=== PATIENT | female | born 1960 | race American Indian/Alaskan Native ===

== ENCOUNTER 2021-09-02 20:00 | Inpatient (IN) | payer MEDICAID ==
[~2021-09-02] VITALS: Ht 154.9 cm; Wt 88.0 kg
[~2021-09-02 20:00] MED LIST: etomidate 2mg/ml inj. ONE
[2021-09-03] VITALS (7 sets, daily range): BP systolic 105–136; BP diastolic 61–66
--- NOTE | 2021-09-03 | NUR ---
Received report from Estrella SAM from [facility] ED. Patient was air flighted here. Patient came to floor via gurney. Bed placed in locked and low position and call light within reach.
[2021-09-03] MEDS ORDERED: LEVO100T PO (00:37)
[2021-09-03] MEDS ORDERED: METO-395 PO (00:37)
[2021-09-03] MEDS ORDERED: PHEN100C4 PO (00:37)
[2021-09-03] MEDS ORDERED: LISI5TAB22 PO (00:37)
[2021-09-03] MEDS ORDERED: magnesium hydroxide 30ml (MOM) UD suspension PO PRN (01:35)
[2021-09-03] MEDS ORDERED: HYDROcodone/acetaminophen 5mg/325mg tablet PO PRN (01:35)
[2021-09-03] MEDS ORDERED: HYDROcodone/acetaminophen 10/325mg tab PO PRN (01:35)
[2021-09-03] MEDS ORDERED: diphenhydrAMINE 25mg capsule PO PRN (01:35)
[2021-09-03] MEDS ORDERED: acetaminophen 650mg rectal suppository RC PRN (01:35)
[2021-09-03] MEDS ORDERED: diphenhydrAMINE 50 mg/ml inj IV PRN (01:35)
[2021-09-03] MEDS ORDERED: bisacodyl 10mg suppository rectal RC PRN (01:35)
[2021-09-03] MEDS ORDERED: acetaminophen 325mg tablet PO PRN (01:35)
[2021-09-03] MEDS ORDERED: morphine 2 MG/ML inj. syringe IV PRN (01:35)
[2021-09-03] MEDS ORDERED: mag hydrox/Alum hydrox/simeth 30ml oral suspension PO PRN (01:35)
[2021-09-03] MEDS ORDERED: ALBUTEROL INHALER 1 PUFF/90 MCG INHALER IH PRN (01:40)
[2021-09-03 02:40] LABS: CLARITY,URINE CLEAR (Clear); COLOR,URINE YELLOW (Yellow); GLUCOSE, URINE NEGATIVE (Neg); PROTEIN,URINE 30 mg/dl (Neg); UA COLLECTION TYPE NON-SPECIFIED
[2021-09-03 02:41] LABS: KETONES,URINE 15 mg/dl (Neg); LEUKOCYTE ESTERASE ,URINE NEGATIVE (Neg); NITRITES, URINE POSITIVE (Neg); OCCULT BLOOD,URINE MODERATE (Neg)
[2021-09-03 02:46] LABS: BACTERIA,URINE 3+ /HPF (Neg); COARSE GRANULAR CAST 0-3 /LPF (NEGATIVE); SQUAMOUS EPITHELIAL CELL,UR FEW /LPF (FEW)
[2021-09-03 02:57] LABS: URINE AMPHETAMINE SCREEN NEGATIVE (Neg); URINE BARBITUATE SCREEN NEGATIVE (Neg); URINE BENZODIAZEPINES SCREEN NEGATIVE (Neg); URINE CANNABINOID SCREEN NEGATIVE (Neg); URINE COCAINE SCREEN NEGATIVE (Neg); URINE METHADONE SCREEN NEGATIVE (Neg); URINE OPIATE SCREEN NEGATIVE (Neg); URINE PHENCYCLIDINE SCREEN NEGATIVE (Neg)
[2021-09-03 03:28] LABS: D-DIMER 1.44 MG/L FEU (0-0.50); PARTIAL THROMBOPLASTIN TIME 29 SECONDS (22-32)
[2021-09-03 03:39] LABS: PHENYTOIN (DILANTIN) 3.7 UG/ML (10.0-20.0); PHOSPHORUS 4.2 MG/DL (2.3-4.5)
[2021-09-03] MEDS: normal saline 1000ml 1,000 ML IV SCH ×2 (03:42→11:35)
[2021-09-03 03:58] LABS: HEMOGLOBIN A1C 5.6 % (4.5-6.2)
--- NOTE | 2021-09-03 06:22 | NUR ---
Problems reprioritized. Patient report given, questions answered & plan of care reviewed with Pamela SAM.
--- NOTE | 2021-09-03 06:41 | NUR ---
Patient in room ORTHO 4014. I have received report from Amparo SAM and had the opportunity to ask questions and assume patient care.
[2021-09-03] MEDS: CefTRIAXone/D5W-Rocephin 1gm 50 ML IV SCH (07:03)
[2021-09-03] MEDS: azithromycin/NS 500mg/250ml 250 ML IV SCH (07:03)
[2021-09-03] MEDS: enoxaparin 60mg/0.6ml syringe SUBCUT SCH ×2 (07:03→19:38)
[2021-09-03] MEDS: pantoprazole 40mg Tablet.DR PO SCH (07:03)
[2021-09-03] MEDS: phenytoin sod ER 100mg capsule PO SCH ×2 (07:04→19:38)
[2021-09-03] MEDS: levoTHYROXINE 100mcg tablet PO SCH (07:04)
[2021-09-03] MEDS: dexamethasone 4mg/ml inj IV SCH ×2 (07:04→19:39)
[2021-09-03] MEDS: docusate sod 100mg capsule PO SCH ×2 (07:05→19:37)
--- NOTE | 2021-09-03 07:59 | NUR ---
PAGER ID: [phone] MESSAGE: [id number], Elan patient came in from [facility] [place] last night, got one dose of remdesivir in their ER. Not ordered for here. Don't know if you want to discuss with ID. Pamela [id number]
[2021-09-03] MEDS ORDERED: enoxaparin 40mg/0.4ml syringe SUBCUT SCH (08:00)
[2021-09-03] MEDS ORDERED: lisinopril 5mg tablet PO SCH (08:00)
[2021-09-03] MEDS ORDERED: metoprolol succinate 25mg (24-HOUR) SR. Tablet PO SCH (08:00)
[2021-09-03 09:18] LABS: D-DIMER 1.49 MG/L FEU (0-0.50)
[2021-09-03 09:31] LABS: ALANINE AMINOTRANSFERASE 105 U/L (12-78); ALBUMIN/GLOBULIN RATIO 0.4 (1.1-1.5); ALKALINE PHOSPHATASE 99 IU/L (46-116); ANION GAP 14 (8-16); ASPARTATE AMINO TRANSFERASE 167 U/L (10-37); BILIRUBIN,TOTAL 0.8 MG/DL (0.1-1.0); BLOOD UREA NITROGEN 49 MG/DL (7-18); BUN/CREATININE RATIO 25.1 (6.6-38.0); CALCIUM 7.3 MG/DL (8.5-10.1); CHLORIDE 104 MMOL/L (99-107); CREATININE 1.95 MG/DL (0.40-0.90); GLUCOSE 158 MG/DL (70-104); LACTATE DEHYDROGENASE 836 U/L (81-234); POTASSIUM 4.2 MMOL/L (3.5-5.1); SODIUM 136 MMOL/L (135-145); TOTAL CARBON DIOXIDE 17.8 MMOL/L (24-32); TOTAL PROTEIN 6.5 G/DL (6.4-8.2); eGFR 26 ML/MIN
[2021-09-03 09:37] LABS: BASOPHILS % (AUTO) 0.1 % (0-1); EOSINOPHILS % (AUTO) 0 % (0-6); LYMPHOCYTES # (AUTO) 0.4 X10'3 (1.1-4.8); LYMPHOCYTES % (AUTO) 2.2 % (21-51); MEAN CORPUSCULAR HEMOGLOBIN 31.2 PG (27.0-31.0); MEAN CORPUSCULAR HGB CONC 35.6 g/dL (33.0-36.5); MEAN CORPUSCULAR VOLUME 87.4 FL (78-98); MEAN PLATELET VOLUME 8.1 FL (7.4-10.4); MONOCYTES # (AUTO) 0.5 X10'3 (0-0.9); NEUTROPHILS # (AUTO) 16.1 X10'3 (1.8-7.7); NEUTROPHILS % (AUTO) 94.7 % (42-75); PLATELET COUNT 240 X10'3 (140-440); RED CELL DISTRIBUTION WIDTH 13.9 % (11.5-14.5)
[2021-09-03] MEDS ORDERED: METO-384 PO (09:38)
[2021-09-03] MEDS ORDERED: LISI20TA28 PO (09:38)
[2021-09-03 10:02] LABS: C-REACTIVE PROTEIN 28.81 MG/DL (0.0-0.5)
--- NOTE | 2021-09-03 10:38 | NUR ---
PAGER ID: [phone] MESSAGE: [id number], C02 on chemistry is 17, bicarb on blood gas was only 11. Do you want her on any bicarb? also CRP is 28, did we talk to ID about starting remdesivir? hermelindo [phone]
[2021-09-03] MEDS: acetaminophen 325mg tablet PO PRN (12:38)
--- NOTE | 2021-09-03 14:18 | NUR ---
Discussed with hospitalist patients c02 level and bicarb of 11 on ABG from [facility]. no changes in orders.
--- NOTE | 2021-09-03 18:18 | NUR ---
Problems reprioritized. Patient report given, questions answered & plan of care reviewed with Amparo SAM.
--- NOTE | 2021-09-03 18:24 | NUR ---
Patient in room ORTHO 4014. I have received report from Pamela SAM and had the opportunity to ask questions and assume patient care.
[2021-09-03] MEDS: REMDESIVIR INJ 100 MG in normal saline 100ml IV soln 80 ML IV SCH (18:43)
[2021-09-03] MEDS: lactobacillus rhamnosus 10,000 MMU CELLS/CAPSULE PO SCH (19:40)
[2021-09-03 20:18] LABS: ABG BASE EXCESS -6.7 mmol/L (-2.0-2.0); ABG HCO3 16.7 mmol/L (22.0-26.0); ABG OXYGEN SATURATION 83.8 % (94-97); ABG PCO2 (T) 27.9 mmHg (32.0-45.0); ABG PO2 (T) 48.9 mmHg (75.0-100.0); ALLEN'S TEST Modified; FCOHb 0.4 % (0.0-3.9); FMetHb 0.1 % (0.0-1.5); FO2Hb 83.4 % (94-97); PATIENT TEMPERATURE 37.2; TOTAL HEMOGLOBIN 13.4 G/dl (12.0-16.0)
--- NOTE | 2021-09-03 20:35 | NUR ---
Called MD with critical ABG results. CPAP ordered and paged RT. Spoke with linen room houseperson about STAT nuclear med test ordered. No nuclear med scans available at night [facility]. states the scan can be done tomorrow during the day.
[2021-09-03] MEDS ORDERED: temazepam 15mg capsule PO PRN (21:00)
[2021-09-03] MEDS: sodium bicarbonate (8.4%) inj. 50 MEQ in dextrose 5%-water 1,000 ML IV SCH (21:37)
[2021-09-04 02:00] VITALS: BP 110/46
--- NOTE | 2021-09-04 06:17 | NUR ---
Problems reprioritized. Patient report given, questions answered & plan of care reviewed with Pamela SAM.
--- NOTE | 2021-09-04 06:22 | NUR ---
Patient in room ORTHO 4014. I have received report from Amparo SAM and had the opportunity to ask questions and assume patient care.
[2021-09-04 06:26] VITALS: BP 121/64
[2021-09-04] MEDS: CefTRIAXone/D5W-Rocephin 1gm 50 ML IV SCH (06:50)
[2021-09-04] MEDS: azithromycin/NS 500mg/250ml 250 ML IV SCH (07:13)
[2021-09-04] MEDS: dexamethasone 4mg/ml inj IV SCH ×2 (07:13→19:21)
[2021-09-04] MEDS: metoprolol succinate 25mg (24-HOUR) SR. Tablet PO SCH (07:39)
[2021-09-04] MEDS: levoTHYROXINE 100mcg tablet PO SCH (07:39)
[2021-09-04] MEDS: enoxaparin 60mg/0.6ml syringe SUBCUT SCH ×2 (07:39→19:20)
[2021-09-04] MEDS: pantoprazole 40mg Tablet.DR PO SCH (07:40)
[2021-09-04] MEDS: phenytoin sod ER 100mg capsule PO SCH ×2 (07:40→19:20)
[2021-09-04] MEDS: lactobacillus rhamnosus 10,000 MMU CELLS/CAPSULE PO SCH ×2 (07:40→19:20)
[2021-09-04] MEDS: docusate sod 100mg capsule PO SCH ×2 (07:40→19:20)
[2021-09-04] MEDS: lisinopril 20mg tablet PO SCH (08:00)
--- NOTE | 2021-09-04 08:09 | NUR ---
PAGER ID: [phone] MESSAGE: [id number], Elan placed on CPAP last night for critical P02 of 48, can I get a repeat blood gas to see what p02 is now to see if we can go back to high flow? patient does not like being on CPAP. thanks, hermelindo [phone]
--- NOTE | 2021-09-04 08:10 | NUR ---
Gave patient AM medications and assisted with eating breakfast while on CPAP, patient tolerated well, lowest 02 got was 84%.
[2021-09-04 08:35] LABS: BASOPHILS % (AUTO) 0.1 % (0-1); EOSINOPHILS % (AUTO) 0 % (0-6); HEMATOCRIT 39.5 % (35.0-45.0); HEMOGLOBIN 14.1 g/dl (12.0-16.0); LYMPHOCYTES # (AUTO) 0.4 X10'3 (1.1-4.8); LYMPHOCYTES % (AUTO) 3.2 % (21-51); MEAN CORPUSCULAR HEMOGLOBIN 31.5 PG (27.0-31.0); MEAN CORPUSCULAR HGB CONC 35.8 g/dL (33.0-36.5); MEAN PLATELET VOLUME 8.1 FL (7.4-10.4); MONOCYTES # (AUTO) 0.3 X10'3 (0-0.9); MONOCYTES % (AUTO) 2.8 % (2-12); NEUTROPHILS # (AUTO) 10.6 X10'3 (1.8-7.7); NEUTROPHILS % (AUTO) 93.9 % (42-75); PLATELET COUNT 271 X10'3 (140-440); RED BLOOD COUNT 4.48 X10'6 (4.20-5.60); RED CELL DISTRIBUTION WIDTH 13.8 % (11.5-14.5); WHITE BLOOD COUNT 11.3 X10'3 (4.5-11.0)
[2021-09-04 08:52] LABS: D-DIMER 1.43 MG/L FEU (0-0.50)
[2021-09-04 08:52] LABS: ABG BASE EXCESS -3.1 mmol/L (-2.0-2.0); ABG HCO3 20.5 mmol/L (22.0-26.0); ABG OXYGEN SATURATION 94.6 % (94-97); ALLEN'S TEST POSITIVE; FCOHb 0.2 % (0.0-3.9); FMetHb 0.4 % (0.0-1.5); TIDAL VOLUME 550 mL; TOTAL HEMOGLOBIN 14.2 G/dl (12.0-16.0)
[2021-09-04 09:16] LABS: ALANINE AMINOTRANSFERASE 67 U/L (12-78); ALBUMIN 1.8 G/DL (3.4-5.0); ALBUMIN/GLOBULIN RATIO 0.4 (1.1-1.5); ALKALINE PHOSPHATASE 93 IU/L (46-116); ANION GAP 11 (8-16); ASPARTATE AMINO TRANSFERASE 70 U/L (10-37); BILIRUBIN,TOTAL 0.5 MG/DL (0.1-1.0); BLOOD UREA NITROGEN 40 MG/DL (7-18); BUN/CREATININE RATIO 26.1 (6.6-38.0); CALCIUM 7.1 MG/DL (8.5-10.1); CHLORIDE 109 MMOL/L (99-107); CHOL/HDL RATIO 4.1 (0.00-4.99); CHOLESTEROL 111 MG/DL (0-200); CREATININE 1.53 MG/DL (0.40-0.90); GLUCOSE 254 MG/DL (70-104); HDL CHOLESTEROL 27 MG/DL (35-60); LDL CHOLESTEROL 59 MG/DL (50-100); POTASSIUM 4.1 MMOL/L (3.5-5.1); SODIUM 142 MMOL/L (135-145); TOTAL CARBON DIOXIDE 21.7 MMOL/L (24-32); TOTAL PROTEIN 5.9 G/DL (6.4-8.2); TRIGLYCERIDES 121 MG/DL (20-135); eGFR 35 ML/MIN
[2021-09-04 09:55] VITALS: BP 146/70
[2021-09-04] MEDS: sodium bicarbonate (8.4%) inj. 50 MEQ in dextrose 5%-water 1,000 ML IV SCH ×2 (11:38→19:34)
[2021-09-04 14:00] VITALS: BP 141/67
[2021-09-04] MEDS: acetaminophen 325mg tablet PO PRN (15:01)
[2021-09-04] MEDS: REMDESIVIR INJ 100 MG in normal saline 100ml IV soln 80 ML IV SCH (17:02)
[2021-09-04 18:00] VITALS: BP 108/49
--- NOTE | 2021-09-04 18:22 | NUR ---
Problems reprioritized. Patient report given, questions answered & plan of care reviewed with [place] SAM.
--- NOTE | 2021-09-04 18:25 | NUR ---
Patient in room ORTHO 4014. I have received report from CECY Santiago and had the opportunity to ask questions and assume patient care.
[2021-09-04 22:00] VITALS: BP 132/72
[2021-09-04] MEDS: guaiFENesin 200 MG/10 ML oral syrup UD cup PO PRN (23:29)
[2021-09-05 02:00] VITALS: BP 128/68
[2021-09-05 06:00] VITALS: BP 129/61
--- NOTE | 2021-09-05 06:39 | NUR ---
Problems reprioritized. Patient report given, questions answered & plan of care reviewed with CECY Mukherjee.
[2021-09-05 07:35] LABS: BASOPHILS % (AUTO) 0.1 % (0-1); EOSINOPHILS % (AUTO) 0.1 % (0-6); HEMATOCRIT 44.9 % (35.0-45.0); HEMOGLOBIN 15.9 g/dl (12.0-16.0); LYMPHOCYTES # (AUTO) 0.5 X10'3 (1.1-4.8); LYMPHOCYTES % (AUTO) 3.9 % (21-51); MEAN CORPUSCULAR HGB CONC 35.4 g/dL (33.0-36.5); MEAN CORPUSCULAR VOLUME 90.4 FL (78-98); MEAN PLATELET VOLUME 8.4 FL (7.4-10.4); MONOCYTES # (AUTO) 0.4 X10'3 (0-0.9); MONOCYTES % (AUTO) 2.7 % (2-12); NEUTROPHILS # (AUTO) 12.3 X10'3 (1.8-7.7); NEUTROPHILS % (AUTO) 93.2 % (42-75); PLATELET COUNT 339 X10'3 (140-440); RED BLOOD COUNT 4.96 X10'6 (4.20-5.60); RED CELL DISTRIBUTION WIDTH 13.7 % (11.5-14.5); WHITE BLOOD COUNT 13.2 X10'3 (4.5-11.0)
[2021-09-05 07:39] LABS: ALANINE AMINOTRANSFERASE 52 U/L (12-78); ALBUMIN 2.1 G/DL (3.4-5.0); ALBUMIN/GLOBULIN RATIO 0.4 (1.1-1.5); ALKALINE PHOSPHATASE 131 IU/L (46-116); ANION GAP 12 (8-16); ASPARTATE AMINO TRANSFERASE 57 U/L (10-37); BILIRUBIN,TOTAL 0.7 MG/DL (0.1-1.0); BLOOD UREA NITROGEN 26 MG/DL (7-18); CALCIUM 7.5 MG/DL (8.5-10.1); CHLORIDE 106 MMOL/L (99-107); CREATININE 1.37 MG/DL (0.40-0.90); GLUCOSE 194 MG/DL (70-104); SODIUM 143 MMOL/L (135-145); TOTAL CARBON DIOXIDE 25.4 MMOL/L (24-32); TOTAL PROTEIN 7.2 G/DL (6.4-8.2); eGFR 39 ML/MIN
[2021-09-05 07:42] LABS: POTASSIUM 3.8 MMOL/L (3.5-5.1)
[2021-09-05] MEDS: enoxaparin 60mg/0.6ml syringe SUBCUT SCH ×2 (07:52→22:33)
[2021-09-05] MEDS: dexamethasone 4mg/ml inj IV SCH ×2 (07:52→22:33)
[2021-09-05] MEDS: CefTRIAXone/D5W-Rocephin 1gm 50 ML IV SCH (07:52)
[2021-09-05] MEDS: lactobacillus rhamnosus 10,000 MMU CELLS/CAPSULE PO SCH ×2 (07:53→20:00)
[2021-09-05] MEDS: metoprolol succinate 25mg (24-HOUR) SR. Tablet PO SCH (07:53)
[2021-09-05] MEDS: phenytoin sod ER 100mg capsule PO SCH ×2 (07:53→22:33)
[2021-09-05] MEDS: pantoprazole 40mg Tablet.DR PO SCH (07:53)
[2021-09-05] MEDS: levoTHYROXINE 100mcg tablet PO SCH (07:53)
[2021-09-05] MEDS: docusate sod 100mg capsule PO SCH ×2 (07:53→20:00)
[2021-09-05] MEDS: lisinopril 20mg tablet PO SCH (07:54)
[2021-09-05] MEDS: ondansetron/PF 4mg/2ml inj IV PRN ×2 (08:09→18:52)
[2021-09-05 09:10] LABS: TOTAL CELLS COUNTED 100
[2021-09-05 09:13] LABS: PLATELET ESTIMATE NORMAL; POIKILOCYTOSIS FEW
[2021-09-05] MEDS: azithromycin/NS 500mg/250ml 250 ML IV SCH (09:53)
[2021-09-05 10:00] VITALS: BP 141/73
[2021-09-05] MEDS: sodium bicarbonate (8.4%) inj. 50 MEQ in dextrose 5%-water 1,000 ML IV SCH (12:38)
[2021-09-05 14:00] VITALS: BP 109/57
[2021-09-05] MEDS: normal saline 1000ml 1,000 ML IV SCH (14:37)
[2021-09-05] MEDS: REMDESIVIR INJ 100 MG in normal saline 100ml IV soln 80 ML IV SCH (16:39)
--- NOTE | 2021-09-05 18:20 | NUR ---
Problems reprioritized. Patient report given, questions answered & plan of care reviewed with CECY Arteaga.
[2021-09-05 18:30] VITALS: BP 90/54
[2021-09-05 22:00] VITALS: BP 128/53
[2021-09-05] MEDS: guaiFENesin 200 MG/10 ML oral syrup UD cup PO PRN (22:33)
[2021-09-06 02:00] VITALS: BP 149/49
[2021-09-06] MEDS: normal saline 1000ml 1,000 ML IV SCH ×3 (03:50→23:53)
[2021-09-06 06:00] VITALS: BP 128/58
--- NOTE | 2021-09-06 06:26 | NUR ---
Patient in room ORTHO 4014B. I have received report from CECY NELSON and had the opportunity to ask questions and assume patient care.
[2021-09-06 07:32] LABS: ALANINE AMINOTRANSFERASE 38 U/L (12-78); ALBUMIN 1.4 G/DL (3.4-5.0); ALBUMIN/GLOBULIN RATIO 0.3 (1.1-1.5); ALKALINE PHOSPHATASE 112 IU/L (46-116); ANION GAP 8 (8-16); ASPARTATE AMINO TRANSFERASE 60 U/L (10-37); BILIRUBIN,TOTAL 0.5 MG/DL (0.1-1.0); BLOOD UREA NITROGEN 21 MG/DL (7-18); BUN/CREATININE RATIO 16.3 (6.6-38.0); CALCIUM 6.5 MG/DL (8.5-10.1); CHLORIDE 109 MMOL/L (99-107); CREATININE 1.29 MG/DL (0.40-0.90); GLUCOSE 141 MG/DL (70-104); POTASSIUM 3.5 MMOL/L (3.5-5.1); SODIUM 142 MMOL/L (135-145); TOTAL CARBON DIOXIDE 24.9 MMOL/L (24-32); TOTAL PROTEIN 5.5 G/DL (6.4-8.2); eGFR 42 ML/MIN
[2021-09-06] MEDS: CefTRIAXone/D5W-Rocephin 1gm 50 ML IV SCH (07:41)
[2021-09-06] MEDS: pantoprazole 40mg Tablet.DR PO SCH (07:42)
[2021-09-06] MEDS: docusate sod 100mg capsule PO SCH ×2 (07:42→20:06)
[2021-09-06] MEDS: dexamethasone 4mg/ml inj IV SCH ×2 (07:42→20:09)
[2021-09-06] MEDS: enoxaparin 60mg/0.6ml syringe SUBCUT SCH ×2 (07:42→20:12)
[2021-09-06] MEDS: phenytoin sod ER 100mg capsule PO SCH ×2 (07:42→20:09)
[2021-09-06] MEDS: lactobacillus rhamnosus 10,000 MMU CELLS/CAPSULE PO SCH ×2 (07:42→20:09)
[2021-09-06] MEDS: levoTHYROXINE 100mcg tablet PO SCH (07:42)
[2021-09-06] MEDS: metoprolol succinate 25mg (24-HOUR) SR. Tablet PO SCH (07:43)
[2021-09-06] MEDS: lisinopril 20mg tablet PO SCH (07:43)
[2021-09-06 07:57] LABS: BASOPHILS % (AUTO) 0.3 % (0-1); EOSINOPHILS % (AUTO) 0.1 % (0-6); HEMOGLOBIN 12.4 g/dl (12.0-16.0); LYMPHOCYTES # (AUTO) 0.2 X10'3 (1.1-4.8); LYMPHOCYTES % (AUTO) 2.5 % (21-51); MEAN CORPUSCULAR HEMOGLOBIN 31.7 PG (27.0-31.0); MEAN CORPUSCULAR HGB CONC 35.5 g/dL (33.0-36.5); MEAN CORPUSCULAR VOLUME 89.4 FL (78-98); MEAN PLATELET VOLUME 7.9 FL (7.4-10.4); MONOCYTES # (AUTO) 0.3 X10'3 (0-0.9); MONOCYTES % (AUTO) 2.6 % (2-12); NEUTROPHILS # (AUTO) 9.4 X10'3 (1.8-7.7); NEUTROPHILS % (AUTO) 94.5 % (42-75); PLATELET COUNT 335 X10'3 (140-440); RED BLOOD COUNT 3.92 X10'6 (4.20-5.60); RED CELL DISTRIBUTION WIDTH 13.4 % (11.5-14.5)
[2021-09-06 08:43] LABS: PLATELET ESTIMATE NORMAL; TOTAL CELLS COUNTED 100
[2021-09-06 08:44] LABS: LARGE PLATELETS FEW
[2021-09-06 10:00] VITALS: BP 135/63
[2021-09-06 14:00] VITALS: BP 122/65
[2021-09-06] MEDS: REMDESIVIR INJ 100 MG in normal saline 100ml IV soln 80 ML IV SCH (16:21)
[2021-09-06 18:30] VITALS: BP 127/73
--- NOTE | 2021-09-06 18:33 | NUR ---
Problems reprioritized. Patient report given, questions answered & plan of care reviewed with CECY Arteaga.
[2021-09-06] MEDS: ondansetron/PF 4mg/2ml inj IV PRN (21:03)
[2021-09-06 22:00] VITALS: BP 116/47
[2021-09-07 02:00] VITALS: BP 135/53
[2021-09-07 06:00] VITALS: BP 160/53
--- NOTE | 2021-09-07 06:32 | NUR ---
Patient in room ORTHO 4014B. I have received report from CECY Arteaga and had the opportunity to ask questions and assume patient care.
[2021-09-07 07:27] LABS: D-DIMER 4.24 MG/L FEU (0-0.50)
[2021-09-07 07:42] LABS: BASOPHILS % (AUTO) 0.1 % (0-1); EOSINOPHILS % (AUTO) 0.1 % (0-6); HEMATOCRIT 34.9 % (35.0-45.0); HEMOGLOBIN 12.2 g/dl (12.0-16.0); LYMPHOCYTES # (AUTO) 0.2 X10'3 (1.1-4.8); LYMPHOCYTES % (AUTO) 2.8 % (21-51); MEAN CORPUSCULAR HEMOGLOBIN 31.5 PG (27.0-31.0); MEAN CORPUSCULAR HGB CONC 35.1 g/dL (33.0-36.5); MEAN CORPUSCULAR VOLUME 89.7 FL (78-98); MEAN PLATELET VOLUME 7.9 FL (7.4-10.4); MONOCYTES # (AUTO) 0.2 X10'3 (0-0.9); MONOCYTES % (AUTO) 2.6 % (2-12); NEUTROPHILS # (AUTO) 7.4 X10'3 (1.8-7.7); NEUTROPHILS % (AUTO) 94.4 % (42-75); PLATELET COUNT 344 X10'3 (140-440); RED BLOOD COUNT 3.89 X10'6 (4.20-5.60); RED CELL DISTRIBUTION WIDTH 13.4 % (11.5-14.5); WHITE BLOOD COUNT 7.9 X10'3 (4.5-11.0)
[2021-09-07 07:53] LABS: ALANINE AMINOTRANSFERASE 39 U/L (12-78); ALBUMIN 1.4 G/DL (3.4-5.0); ALBUMIN/GLOBULIN RATIO 0.3 (1.1-1.5); ALKALINE PHOSPHATASE 131 IU/L (46-116); ANION GAP 9 (8-16); ASPARTATE AMINO TRANSFERASE 79 U/L (10-37); BILIRUBIN,TOTAL 0.6 MG/DL (0.1-1.0); BLOOD UREA NITROGEN 17 MG/DL (7-18); BUN/CREATININE RATIO 14.2 (6.6-38.0); C-REACTIVE PROTEIN 23.68 MG/DL (0.0-0.5); CALCIUM 6.5 MG/DL (8.5-10.1); CHLORIDE 110 MMOL/L (99-107); GLUCOSE 181 MG/DL (70-104); POTASSIUM 3.8 MMOL/L (3.5-5.1); SODIUM 144 MMOL/L (135-145); TOTAL CARBON DIOXIDE 25.2 MMOL/L (24-32); TOTAL PROTEIN 5.6 G/DL (6.4-8.2); eGFR 46 ML/MIN
[2021-09-07] MEDS: metoprolol succinate 25mg (24-HOUR) SR. Tablet PO SCH (08:38)
[2021-09-07] MEDS: enoxaparin 60mg/0.6ml syringe SUBCUT SCH ×2 (08:38→19:05)
[2021-09-07] MEDS: levoTHYROXINE 100mcg tablet PO SCH (08:38)
[2021-09-07] MEDS: dexamethasone 6 MG in D5W 100ml IV soln IV SCH ×2 (08:38→19:06)
[2021-09-07] MEDS: docusate sod 100mg capsule PO SCH ×2 (08:39→19:04)
[2021-09-07] MEDS: lisinopril 20mg tablet PO SCH (08:39)
[2021-09-07] MEDS: lactobacillus rhamnosus 10,000 MMU CELLS/CAPSULE PO SCH ×2 (08:39→19:04)
[2021-09-07] MEDS: pantoprazole 40mg Tablet.DR PO SCH (08:39)
[2021-09-07] MEDS: phenytoin sod ER 100mg capsule PO SCH ×2 (08:39→19:04)
[2021-09-07 09:20] LABS: PLATELET ESTIMATE NORMAL; TOTAL CELLS COUNTED 100
[2021-09-07] MEDS: CefTRIAXone/D5W-Rocephin 1gm 50 ML IV SCH (09:51)
[2021-09-07 10:00] VITALS: BP 127/20
--- NOTE | 2021-09-07 12:08 | NUR ---
Initial: Pt admitted w/ increasing SOB and dx of Covid PNA per EMR. Pt currently requiring BiPAP at 100% per documentation. Pt on regular diet w/ poor PO intake, avg 29% x 12meals not meeting needs; likely impacted by respiratory status. Pt may benefit from Ensure Enlive TID at this time. LBM 09/05 receiving routine colace. Will continue to monitor. Recs: 1. Continue Regular diet as tolerated 2. Ensure Enlive TID; pending MD verification 3. Bowel care per rx 4. Scaled wt this admit, subsequent weekly wt Addendum: 09/07/21 at [address] Amended: Links added.
[2021-09-07] MEDS ORDERED: lactose-reduced food (Ensure Enlive) - 237ml bottle PO SCH (13:00)
[2021-09-07 18:00] VITALS: BP 148/67
--- NOTE | 2021-09-07 18:26 | NUR ---
Patient in room ORTHO 4014. I have received report from Yaz SAM and had the opportunity to ask questions and assume patient care.
--- NOTE | 2021-09-07 18:28 | NUR ---
Problems reprioritized. Patient report given, questions answered & plan of care reviewed with CECY Christenesn.
[2021-09-07] MEDS: guaiFENesin 200 MG/10 ML oral syrup UD cup PO PRN (19:04)
[2021-09-07] MEDS: morphine 2 MG/ML inj. syringe IV PRN ×2 (19:07→22:48)
[2021-09-07] MEDS: normal saline 1000ml 1,000 ML IV SCH (19:50)
[2021-09-07 22:00] VITALS: BP 161/77
[2021-09-08] MEDS: methylPREDNISolone sod succ 125mg/2ml vial IV SCH ×4 (00:39→23:33)
[2021-09-08] MEDS: normal saline 1000ml 1,000 ML IV SCH ×2 (01:18→14:03)
[2021-09-08 02:00] VITALS: BP 142/72
[2021-09-08 06:00] VITALS: BP 164/77
--- NOTE | 2021-09-08 06:23 | NUR ---
Problems reprioritized. Patient report given, questions answered & plan of care reviewed with Angelique SAM.
--- NOTE | 2021-09-08 06:25 | NUR ---
received report from rodriguez carnes
[2021-09-08 06:54] LABS: ALANINE AMINOTRANSFERASE 31 U/L (12-78); ALBUMIN 1.5 G/DL (3.4-5.0); ALBUMIN/GLOBULIN RATIO 0.4 (1.1-1.5); ALKALINE PHOSPHATASE 120 IU/L (46-116); ANION GAP 9 (8-16); ASPARTATE AMINO TRANSFERASE 43 U/L (10-37); BILIRUBIN,TOTAL 0.6 MG/DL (0.1-1.0); BLOOD UREA NITROGEN 18 MG/DL (7-18); BUN/CREATININE RATIO 17.1 (6.6-38.0); CALCIUM 6.4 MG/DL (8.5-10.1); CHLORIDE 108 MMOL/L (99-107); CREATININE 1.05 MG/DL (0.40-0.90); GLUCOSE 193 MG/DL (70-104); SODIUM 142 MMOL/L (135-145); TOTAL CARBON DIOXIDE 24.7 MMOL/L (24-32); TOTAL PROTEIN 5.7 G/DL (6.4-8.2); eGFR 53 ML/MIN
[2021-09-08 07:45] LABS: BASOPHILS % (AUTO) 0.1 % (0-1); EOSINOPHILS % (AUTO) 0 % (0-6); HEMATOCRIT 35.2 % (35.0-45.0); HEMOGLOBIN 12.5 g/dl (12.0-16.0); LYMPHOCYTES # (AUTO) 0.1 X10'3 (1.1-4.8); LYMPHOCYTES % (AUTO) 1.9 % (21-51); MEAN CORPUSCULAR HEMOGLOBIN 31.6 PG (27.0-31.0); MEAN CORPUSCULAR HGB CONC 35.6 g/dL (33.0-36.5); MEAN CORPUSCULAR VOLUME 88.8 FL (78-98); MEAN PLATELET VOLUME 7.9 FL (7.4-10.4); MONOCYTES # (AUTO) 0.1 X10'3 (0-0.9); MONOCYTES % (AUTO) 1.3 % (2-12); NEUTROPHILS # (AUTO) 7.8 X10'3 (1.8-7.7); NEUTROPHILS % (AUTO) 96.7 % (42-75); PLATELET COUNT 386 X10'3 (140-440); RED BLOOD COUNT 3.96 X10'6 (4.20-5.60); RED CELL DISTRIBUTION WIDTH 13.6 % (11.5-14.5)
[2021-09-08] MEDS: phenytoin sod ER 100mg capsule PO SCH ×2 (08:06→19:14)
[2021-09-08] MEDS: lactobacillus rhamnosus 10,000 MMU CELLS/CAPSULE PO SCH ×2 (08:06→19:14)
[2021-09-08] MEDS: pantoprazole 40mg Tablet.DR PO SCH (08:06)
[2021-09-08] MEDS: metoprolol succinate 25mg (24-HOUR) SR. Tablet PO SCH (08:07)
[2021-09-08] MEDS: lisinopril 20mg tablet PO SCH (08:07)
[2021-09-08] MEDS: levoTHYROXINE 100mcg tablet PO SCH (08:07)
[2021-09-08] MEDS: enoxaparin 80mg/0.8ml syringe SUBCUT SCH ×2 (08:08→19:15)
[2021-09-08] MEDS: docusate sod 100mg capsule PO SCH ×2 (08:08→19:14)
[2021-09-08 10:00] VITALS: BP 124/57
[2021-09-08] MEDS: lactose-reduced food (Ensure High Protein) 237ml bottle PO SCH ×2 (12:42→18:13)
[2021-09-08 13:05] LABS: TOTAL CELLS COUNTED 100
[2021-09-08 13:06] LABS: BURR CELLS 1+; PLATELET ESTIMATE NORMAL
[2021-09-08 15:12] VITALS: BP 138/67
[2021-09-08 18:00] VITALS: BP 131/62
--- NOTE | 2021-09-08 18:20 | NUR ---
gave report to rodriguez carnes
--- NOTE | 2021-09-08 18:23 | NUR ---
Patient in room ORTHO 4014. I have received report from Angelique SAM and had the opportunity to ask questions and assume patient care.
[2021-09-08] MEDS: ondansetron/PF 4mg/2ml inj IV PRN (20:21)
[2021-09-08 22:00] VITALS: BP 139/71
[2021-09-09] VITALS (7 sets, daily range): BP systolic 131–176; BP diastolic 45–96
[2021-09-09] MEDS: normal saline 1000ml 1,000 ML IV SCH (02:59)
--- NOTE | 2021-09-09 06:24 | NUR ---
Problems reprioritized. Patient report given, questions answered & plan of care reviewed with Angelique SAM.
--- NOTE | 2021-09-09 06:30 | NUR ---
received report from rodriguez Christensen
[2021-09-09] MEDS: lactose-reduced food (Ensure High Protein) 237ml bottle PO SCH ×3 (08:07→18:00)
[2021-09-09] MEDS: phenytoin sod ER 100mg capsule PO SCH ×2 (08:08→19:44)
[2021-09-09] MEDS: pantoprazole 40mg Tablet.DR PO SCH (08:08)
[2021-09-09] MEDS: metoprolol succinate 25mg (24-HOUR) SR. Tablet PO SCH (08:08)
[2021-09-09] MEDS: lactobacillus rhamnosus 10,000 MMU CELLS/CAPSULE PO SCH ×2 (08:08→19:44)
[2021-09-09] MEDS: docusate sod 100mg capsule PO SCH (08:08)
[2021-09-09] MEDS: levoTHYROXINE 100mcg tablet PO SCH (08:08)
[2021-09-09] MEDS: methylPREDNISolone sod succ 125mg/2ml vial IV SCH ×2 (08:09→15:42)
[2021-09-09] MEDS: lisinopril 20mg tablet PO SCH (08:09)
[2021-09-09] MEDS: enoxaparin 80mg/0.8ml syringe SUBCUT SCH ×2 (08:09→19:44)
[2021-09-09] MEDS: acetaminophen 325mg tablet PO PRN (08:14)
--- NOTE | 2021-09-09 12:24 | NUR ---
sent a page to hospitalist in regards to the son, swapna, wanting hospitalist to update him on how his mom is progressing
[2021-09-09] MEDS ORDERED: metoclopramide 10mg tablet PO PRN (14:20)
[2021-09-09] MEDS ORDERED: ALPRAZolam 0.25mg tablet PO PRN (14:20)
[2021-09-09] MEDS ORDERED: morphine 2 MG/ML inj. syringe IV PRN (14:20)
[2021-09-09] MEDS: guaiFENesin 200 MG/10 ML oral syrup UD cup PO PRN (15:56)
--- NOTE | 2021-09-09 18:26 | NUR ---
gave report to rodriguez carnes
--- NOTE | 2021-09-09 18:30 | NUR ---
Patient in room ORTHO 4014. I have received report from Angelique SAM and had the opportunity to ask questions and assume patient care.
--- NOTE | 2021-09-09 18:55 | NUR ---
Oxygen saturation mid to low 80's, Assisted patient to prone position and administered morphine. Oxygen saturation up to high 80's and patient resting comfortably.
--- NOTE | 2021-09-09 21:15 | NUR ---
Called MD due to lower oxygen saturations in 70's while patient is laying on side, MD wanted stat ABG which revealed critical results. Called MD with the results.
[2021-09-09 21:35] LABS: ABG BASE EXCESS 1.7 mmol/L (-2.0-2.0); ABG HCO3 25.4 mmol/L (22.0-26.0); ABG OXYGEN SATURATION 78.9 % (94-97); ABG PCO2 (T) 37.6 mmHg (32.0-45.0); ABG PO2 (T) 42.3 mmHg (75.0-100.0); ALLEN'S TEST Modified; FCOHb 0.9 % (0.0-3.9); FMetHb 0.3 % (0.0-1.5); PATIENT TEMPERATURE 37.5; TOTAL HEMOGLOBIN 13.7 G/dl (12.0-16.0)
--- NOTE | 2021-09-09 22:10 | NUR ---
Report given to Cheyenne SAM in CICU.
[2021-09-09] MEDS ORDERED: fentaNYL/PF 50MCG/1 ML 2ML syringe IV PRN ×2 (22:30)
[2021-09-09] MEDS ORDERED: vancomycin/NS 1 GM ADD-VANTAGE 250 ML IV ONE (22:50)
[2021-09-09 23:29] LABS: ALANINE AMINOTRANSFERASE 29 U/L (12-78); ALBUMIN 1.6 G/DL (3.4-5.0); ALBUMIN/GLOBULIN RATIO 0.4 (1.1-1.5); ALKALINE PHOSPHATASE 104 IU/L (46-116); ANION GAP 9 (8-16); ASPARTATE AMINO TRANSFERASE 33 U/L (10-37); BILIRUBIN,TOTAL 0.5 MG/DL (0.1-1.0); BLOOD UREA NITROGEN 17 MG/DL (7-18); BUN/CREATININE RATIO 16.5 (6.6-38.0); CALCIUM 6.5 MG/DL (8.5-10.1); CHLORIDE 109 MMOL/L (99-107); CREATININE 1.03 MG/DL (0.40-0.90); GLUCOSE 166 MG/DL (70-104); POTASSIUM 3.8 MMOL/L (3.5-5.1); SODIUM 144 MMOL/L (135-145); TOTAL CARBON DIOXIDE 26.1 MMOL/L (24-32); TOTAL PROTEIN 6.1 G/DL (6.4-8.2); eGFR 55 ML/MIN
[2021-09-09] MEDS: propofol 1000mg/100ml bottle 100 ML IV SCH (23:42)
[2021-09-10] VITALS (24 sets, daily range): BP systolic 70–150; BP diastolic 40–68
[2021-09-10] MEDS ORDERED: FENTANYL-0.9 % NACL/PF 100 ML IV SCH
[2021-09-10] MEDS: FENTANYL-0.9 % NACL/PF 100 ML IV SCH ×7 (00:17→23:52)
[2021-09-10 00:25] LABS: LYMPHOCYTES # (AUTO) 0.4 X10'3 (1.1-4.8)
[2021-09-10 00:27] LABS: HEMATOCRIT 37.6 % (35.0-45.0); HEMOGLOBIN 13.6 g/dl (12.0-16.0); MEAN CORPUSCULAR HEMOGLOBIN 32.2 PG (27.0-31.0); MEAN CORPUSCULAR VOLUME 88.7 FL (78-98); RED BLOOD COUNT 4.24 X10'6 (4.20-5.60); WHITE BLOOD COUNT 13.4 X10'3 (4.5-11.0)
[2021-09-10 00:28] LABS: MEAN CORPUSCULAR HGB CONC 36.2 g/dL (33.0-36.5); MEAN PLATELET VOLUME 8.3 FL (7.4-10.4); PLATELET COUNT 351 X10'3 (140-440); RED CELL DISTRIBUTION WIDTH 13.5 % (11.5-14.5)
[2021-09-10 00:29] LABS: BASOPHILS % (AUTO) 0.8 % (0-1); EOSINOPHILS % (AUTO) 0.3 % (0-6); LYMPHOCYTES % (AUTO) 3.3 % (21-51); MONOCYTES % (AUTO) 2.3 % (2-12); NEUTROPHILS % (AUTO) 93.3 % (42-75)
[2021-09-10 00:30] LABS: BASOPHILS # (AUTO) 0.1 X10'3 (0-0.2); MONOCYTES # (AUTO) 0.3 X10'3 (0-0.9); NEUTROPHILS # (AUTO) 12.5 X10'3 (1.8-7.7)
[2021-09-10 00:53] LABS: TOTAL CELLS COUNTED 100
[2021-09-10 00:54] LABS: PLATELET ESTIMATE NORMAL
[2021-09-10] MEDS ORDERED: NORepinephrine 8mg/ 250ml NS 250 ML IV ONE (00:54)
[2021-09-10 00:55] LABS: BURR CELLS 1+
[2021-09-10 00:56] LABS: TEAR DROP CELLS FEW
[2021-09-10] MEDS ORDERED: midazolam 100mg in NS 100ml 100 ML IV PRN (02:00)
[2021-09-10] MEDS: methylPREDNISolone sod succ 125mg/2ml vial IV SCH ×4 (02:11→23:51)
[2021-09-10] MEDS: NORepinephrine 8mg/ 250ml NS 250 ML IV SCH ×2 (02:15→16:32)
[2021-09-10] MEDS: normal saline 1000ml 1,000 ML IV SCH (02:24)
[2021-09-10] MEDS: propofol 1000mg/100ml bottle 100 ML IV SCH ×5 (02:24→23:51)
[2021-09-10 03:54] LABS: ABG BASE EXCESS -0.6 mmol/L (-2.0-2.0); ABG HCO3 27.3 mmol/L (22.0-26.0); ABG OXYGEN SATURATION 85.6 % (94-97); ABG PCO2 (T) 60.3 mmHg (32.0-45.0); ABG PO2 (T) 56.4 mmHg (75.0-100.0); ALLEN'S TEST Modified; FCOHb 1.6 % (0.0-3.9); FMetHb 0.2 % (0.0-1.5); FO2Hb 84.1 % (94-97); PATIENT TEMPERATURE 37.2; PEEP 15 cm H2O; RESPIRATORY RATE 20 b/min; TOTAL HEMOGLOBIN 13.7 G/dl (12.0-16.0)
[2021-09-10] MEDS: lisinopril 20mg tablet PO SCH (08:00)
[2021-09-10] MEDS: piperacillin/tazo 3.375gm/50ml 50 ML IV SCH ×4 (08:00→23:55)
[2021-09-10] MEDS: lactose-reduced food (Ensure High Protein) 237ml bottle PO SCH (08:00)
[2021-09-10] MEDS ORDERED: phenytoin 50mg chewable tablet PO SCH (08:22)
[2021-09-10] MEDS: levoTHYROXINE 100mcg tablet PO SCH (09:43)
[2021-09-10] MEDS: lactobacillus rhamnosus 10,000 MMU CELLS/CAPSULE PO SCH ×2 (09:43→21:03)
[2021-09-10] MEDS: enoxaparin 80mg/0.8ml syringe SUBCUT SCH ×2 (09:44→21:02)
--- NOTE | 2021-09-10 12:38 | NUR ---
Reassessment: Pt s/p rapid response and ultimately intubated. Will place TF recommendations below for if prolonged intubation and to receive nutrition support. TF recommendations will need to be adjusted if pt to receive PO Dilantin as TF needs to be held for two hours after Dilantin admin IF taken PO. Noted pt currently receiving Propofol at 24.9 mL/hr providing roughly 657 kcal/day. D/w clinical pharmacist recommendation to discontinue ONS given NPO status. LBM 09/06, previously receiving routine Colace though discontinued on 09/09 per EMR. Pt would benefit from routine bowel care for bowel regularity. Recommendations: 1) IF TF and Propofol at 24.9 mL/hr, continuous Vital High Protein with 38 mL/hr goal rate to provide 912 mL total volume/day, 912 kcal, 80 g protein, and 762 mL water. With Propofol will meet estimated energy needs but unable to meet estimated protein needs without overfeeding on the vent 2) IF TF, monitor for scaled weight, Propofol rate adjustments, and Dilantin rx and adjust TF recommendations as appropriate 3) IF TF, monitor serum Na for water flush recommendations 4) IF TF, prealbumin q Monday/ 5) IF TF, daily scaled weights 6) Routine bowel care Addendum: 09/10/21 at [address] Amended: Links added.
[2021-09-10 16:46] LABS: ABG BASE EXCESS -0.5 mmol/L (-2.0-2.0); ABG HCO3 21.7 mmol/L (22.0-26.0); ABG OXYGEN SATURATION 94.3 % (94-97); ABG PCO2 (T) 28.5 mmHg (32.0-45.0); ABG PO2 (T) 64.6 mmHg (75.0-100.0); ALLEN'S TEST POSITIVE; FCOHb 0.9 % (0.0-3.9); FMetHb 0.4 % (0.0-1.5); FO2Hb 93.1 % (94-97); PATIENT TEMPERATURE 36.8; PEEP 15 cm H2O; RESPIRATORY RATE 30 b/min; TOTAL HEMOGLOBIN 13.8 G/dl (12.0-16.0)
[2021-09-10] MEDS: phenytoin 50mg chewable tablet PO SCH (21:03)
[2021-09-10] MEDS ORDERED: vancomycin/NS 1 GM ADD-VANTAGE 250 ML IV SCH (23:00)
[2021-09-11] VITALS (22 sets, daily range): BP systolic 77–133; BP diastolic 41–58
[2021-09-11] MEDS: FENTANYL-0.9 % NACL/PF 100 ML IV SCH ×5 (03:21→21:40)
[2021-09-11] MEDS: propofol 1000mg/100ml bottle 100 ML IV SCH ×4 (03:23→21:40)
[2021-09-11 03:54] LABS: D-DIMER 4.33 MG/L FEU (0-0.50)
[2021-09-11 03:57] LABS: ALANINE AMINOTRANSFERASE 21 U/L (12-78); ALBUMIN 1.2 G/DL (3.4-5.0); ALBUMIN/GLOBULIN RATIO 0.3 (1.1-1.5); ALKALINE PHOSPHATASE 93 IU/L (46-116); ANION GAP 12 (8-16); ASPARTATE AMINO TRANSFERASE 34 U/L (10-37); BILIRUBIN,TOTAL 0.7 MG/DL (0.1-1.0); BLOOD UREA NITROGEN 19 MG/DL (7-18); BUN/CREATININE RATIO 15.7 (6.6-38.0); CALCIUM 6.3 MG/DL (8.5-10.1); CHLORIDE 113 MMOL/L (99-107); CREATININE 1.21 MG/DL (0.40-0.90); GLUCOSE 189 MG/DL (70-104); POTASSIUM 3.9 MMOL/L (3.5-5.1); SODIUM 149 MMOL/L (135-145); TOTAL CARBON DIOXIDE 24.1 MMOL/L (24-32); TOTAL PROTEIN 5.3 G/DL (6.4-8.2); eGFR 45 ML/MIN
[2021-09-11 04:22] LABS: ABG BASE EXCESS -1.7 mmol/L (-2.0-2.0); ABG HCO3 22.5 mmol/L (22.0-26.0); ABG OXYGEN SATURATION 95.7 % (94-97); ABG PCO2 (T) 34.6 mmHg (32.0-45.0); ABG PO2 (T) 75.6 mmHg (75.0-100.0); ALLEN'S TEST Modified; FCOHb 0.4 % (0.0-3.9); FMetHb 0.2 % (0.0-1.5); FO2Hb 95.1 % (94-97); PATIENT TEMPERATURE 35.9; PEEP 15 cm H2O; RESPIRATORY RATE 22 b/min
[2021-09-11 04:36] LABS: BASOPHILS % (AUTO) 0.2 % (0-1); EOSINOPHILS % (AUTO) 0 % (0-6); HEMATOCRIT 35.7 % (35.0-45.0); HEMOGLOBIN 12.4 g/dl (12.0-16.0); LYMPHOCYTES # (AUTO) 0.2 X10'3 (1.1-4.8); LYMPHOCYTES % (AUTO) 2.2 % (21-51); MEAN CORPUSCULAR HEMOGLOBIN 31.6 PG (27.0-31.0); MEAN CORPUSCULAR HGB CONC 34.7 g/dL (33.0-36.5); MEAN CORPUSCULAR VOLUME 90.8 FL (78-98); MEAN PLATELET VOLUME 8.6 FL (7.4-10.4); MONOCYTES # (AUTO) 0.2 X10'3 (0-0.9); MONOCYTES % (AUTO) 1.5 % (2-12); NEUTROPHILS # (AUTO) 10.5 X10'3 (1.8-7.7); NEUTROPHILS % (AUTO) 96.1 % (42-75); PLATELET COUNT 268 X10'3 (140-440); RED BLOOD COUNT 3.93 X10'6 (4.20-5.60); RED CELL DISTRIBUTION WIDTH 13.6 % (11.5-14.5)
[2021-09-11] MEDS: vancomycin/NS 1 GM ADD-VANTAGE 250 ML IV SCH ×2 (04:53→16:50)
[2021-09-11] MEDS ORDERED: dextrose ORAL solution 15 GM/59 ML bottle PO PRN ×2 (08:15)
[2021-09-11] MEDS ORDERED: glucagon, human recombinant 1mg kit SUBCUT PRN (08:15)
[2021-09-11] MEDS ORDERED: dextrose 50%-water 50ml dispensing syringe IV PRN ×2 (08:15)
[2021-09-11] MEDS: NORepinephrine 8mg/ 250ml NS 250 ML IV SCH (09:03)
[2021-09-11] MEDS: lactobacillus rhamnosus 10,000 MMU CELLS/CAPSULE PO SCH ×2 (09:12→19:51)
[2021-09-11] MEDS: lansoprazole 15mg solutab PO SCH (09:13)
[2021-09-11] MEDS: methylPREDNISolone sod succ 125mg/2ml vial IV SCH ×2 (09:13→16:50)
[2021-09-11] MEDS: levoTHYROXINE 100mcg tablet PO SCH (09:13)
[2021-09-11] MEDS: enoxaparin 80mg/0.8ml syringe SUBCUT SCH ×2 (09:14→19:51)
[2021-09-11] MEDS: phenytoin 50mg chewable tablet PO SCH ×2 (09:14→19:54)
[2021-09-11] MEDS: piperacillin/tazo 3.375gm/50ml 50 ML IV SCH ×2 (09:15→16:49)
[2021-09-11 13:15] LABS: MAGNESIUM 1.5 MG/DL (1.5-2.4); PHOSPHORUS 3.4 MG/DL (2.3-4.5)
[2021-09-11] MEDS: insulin Lispro (HumaLOG) vial - multi-dose SQ SCH ×2 (14:21→20:02)
[2021-09-11] MEDS: insulin glargine (Lantus) pen - multi-dose SQ SCH (20:00)
[2021-09-12] VITALS (24 sets, daily range): BP systolic 84–153; BP diastolic 43–62
[2021-09-12] MEDS: methylPREDNISolone sod succ 125mg/2ml vial IV SCH ×3 (00:31→15:47)
[2021-09-12] MEDS: piperacillin/tazo 3.375gm/50ml 50 ML IV SCH ×3 (00:31→15:47)
[2021-09-12] MEDS: NORepinephrine 8mg/ 250ml NS 250 ML IV SCH ×2 (01:07→08:09)
[2021-09-12 03:04] LABS: D-DIMER 2.37 MG/L FEU (0-0.50)
[2021-09-12 03:09] LABS: ALANINE AMINOTRANSFERASE 21 U/L (12-78); ALBUMIN 1.2 G/DL (3.4-5.0); ALBUMIN/GLOBULIN RATIO 0.3 (1.1-1.5); ALKALINE PHOSPHATASE 69 IU/L (46-116); ANION GAP 11 (8-16); ASPARTATE AMINO TRANSFERASE 27 U/L (10-37); BILIRUBIN,TOTAL 0.4 MG/DL (0.1-1.0); BLOOD UREA NITROGEN 27 MG/DL (7-18); BUN/CREATININE RATIO 20.1 (6.6-38.0); CALCIUM 6.5 MG/DL (8.5-10.1); CHLORIDE 113 MMOL/L (99-107); CREATININE 1.34 MG/DL (0.40-0.90); GLUCOSE 193 MG/DL (70-104); POTASSIUM 4.1 MMOL/L (3.5-5.1); SODIUM 149 MMOL/L (135-145); TOTAL CARBON DIOXIDE 24.6 MMOL/L (24-32); TOTAL PROTEIN 5.8 G/DL (6.4-8.2); eGFR 40 ML/MIN
[2021-09-12 03:10] LABS: BASOPHILS % (AUTO) 0.3 % (0-1); EOSINOPHILS % (AUTO) 0 % (0-6); HEMATOCRIT 35.1 % (35.0-45.0); HEMOGLOBIN 12.5 g/dl (12.0-16.0); LYMPHOCYTES # (AUTO) 0.3 X10'3 (1.1-4.8); LYMPHOCYTES % (AUTO) 2.4 % (21-51); MEAN CORPUSCULAR HEMOGLOBIN 33.3 PG (27.0-31.0); MEAN CORPUSCULAR HGB CONC 35.5 g/dL (33.0-36.5); MEAN PLATELET VOLUME 8.1 FL (7.4-10.4); MONOCYTES # (AUTO) 0.4 X10'3 (0-0.9); MONOCYTES % (AUTO) 2.7 % (2-12); NEUTROPHILS # (AUTO) 12.5 X10'3 (1.8-7.7); NEUTROPHILS % (AUTO) 94.6 % (42-75); PLATELET COUNT 347 X10'3 (140-440); RED BLOOD COUNT 3.74 X10'6 (4.20-5.60); RED CELL DISTRIBUTION WIDTH 13.9 % (11.5-14.5); WHITE BLOOD COUNT 13.2 X10'3 (4.5-11.0)
[2021-09-12 03:11] LABS: MAGNESIUM 1.6 MG/DL (1.5-2.4); PHOSPHORUS 3.4 MG/DL (2.3-4.5)
[2021-09-12] MEDS: FENTANYL-0.9 % NACL/PF 100 ML IV SCH ×5 (03:11→19:59)
[2021-09-12] MEDS: insulin Lispro (HumaLOG) vial - multi-dose SQ SCH ×3 (03:15→13:34)
[2021-09-12 03:35] LABS: ABG BASE EXCESS -1.5 mmol/L (-2.0-2.0); ABG HCO3 22.6 mmol/L (22.0-26.0); ABG OXYGEN SATURATION 89.4 % (94-97); ABG PCO2 (T) 36.1 mmHg (32.0-45.0); ABG PO2 (T) 58.5 mmHg (75.0-100.0); ALLEN'S TEST Modified; FCOHb 0.5 % (0.0-3.9); FMetHb 0.1 % (0.0-1.5); FO2Hb 88.9 % (94-97); PATIENT TEMPERATURE 36.9; PEEP 15 cm H2O; RESPIRATORY RATE 22 b/min; TOTAL HEMOGLOBIN 13.1 G/dl (12.0-16.0)
[2021-09-12] MEDS ORDERED: VANCOMYCIN LEVEL IV ONE ×2 (04:30→15:00)
[2021-09-12] MEDS: vancomycin/NS 1 GM ADD-VANTAGE 250 ML IV SCH (05:00)
--- NOTE | 2021-09-12 07:06 | NUR ---
[facility]. I have received report from ISHAN SAM and had the opportunity to ask questions and assume patient care. Addendum: 09/12/21 at 0706 by Jemma Ruvalcaba RN Amended: Links added.
[2021-09-12] MEDS ORDERED: albumin (human) 25% 100 ML IV solution IV ONE (07:40)
[2021-09-12] MEDS ORDERED: furosemide 40mg/4ml inj IV ONE (07:40)
[2021-09-12] MEDS: enoxaparin 80mg/0.8ml syringe SUBCUT SCH ×2 (07:58→19:58)
[2021-09-12] MEDS: lactobacillus rhamnosus 10,000 MMU CELLS/CAPSULE PO SCH ×2 (07:58→19:57)
[2021-09-12] MEDS: levoTHYROXINE 100mcg tablet PO SCH (07:58)
[2021-09-12] MEDS: lansoprazole 15mg solutab PO SCH (07:58)
[2021-09-12] MEDS: phenytoin 50mg chewable tablet PO SCH ×2 (08:01→20:16)
--- NOTE | 2021-09-12 08:49 | NUR ---
Dr. Currie notified of low urine output. Orders received and implemented.
--- NOTE | 2021-09-12 10:52 | NUR ---
Pt. wakes up and follows commands.
[2021-09-12] MEDS: propofol 1000mg/100ml bottle 100 ML IV SCH ×2 (11:15→19:58)
[2021-09-12] MEDS ORDERED: mineral oil/petrolatum ophthal oint EACHEYE PRN (13:20)
--- NOTE | 2021-09-12 13:42 | NUR ---
RN asked Dr. Currie is he wanted nutrition for pt. Orders rec'd.
[2021-09-12] MEDS: mineral oil/petrolatum ophthal oint EACHEYE SCH ×3 (13:53→19:57)
--- NOTE | 2021-09-12 16:13 | NUR ---
Pt's sister called for update today. Update given.
[2021-09-12] MEDS ORDERED: vancomycin/NS 1 GM ADD-VANTAGE 250 ML IV SCH (17:00)
--- NOTE | 2021-09-12 18:07 | NUR ---
Problems reprioritized. Patient report given, questions answered & plan of care reviewed with NOC RN.
[2021-09-12] MEDS: insulin glargine (Lantus) pen - multi-dose SQ SCH (20:37)
[2021-09-13] VITALS (23 sets, daily range): BP systolic 94–156; BP diastolic 47–66
[2021-09-13] MEDS: FENTANYL-0.9 % NACL/PF 100 ML IV SCH ×4 (00:49→18:32)
[2021-09-13] MEDS: propofol 1000mg/100ml bottle 100 ML IV SCH ×3 (00:51→18:33)
[2021-09-13] MEDS: piperacillin/tazo 3.375gm/50ml 50 ML IV SCH ×3 (00:51→16:01)
[2021-09-13] MEDS: methylPREDNISolone sod succ 125mg/2ml vial IV SCH ×3 (00:53→16:01)
[2021-09-13] MEDS: mineral oil/petrolatum ophthal oint EACHEYE SCH ×4 (02:14→20:00)
[2021-09-13 02:27] LABS: ABG BASE EXCESS 0.6 mmol/L (-2.0-2.0); ABG HCO3 24.9 mmol/L (22.0-26.0); ABG OXYGEN SATURATION 91.9 % (94-97); ABG PCO2 (T) 37.1 mmHg (32.0-45.0); ABG PO2 (T) 61.9 mmHg (75.0-100.0); ALLEN'S TEST POSITIVE; FCOHb 0.3 % (0.0-3.9); FMetHb 0.1 % (0.0-1.5); FO2Hb 91.5 % (94-97); PEEP 16 cm H2O; RESPIRATORY RATE 22 b/min; TOTAL HEMOGLOBIN 10.7 G/dl (12.0-16.0)
[2021-09-13] MEDS ORDERED: VANCOMYCIN LEVEL IV ONE (03:00)
[2021-09-13 03:19] LABS: BASOPHILS % (AUTO) 0.4 % (0-1); EOSINOPHILS % (AUTO) 0.1 % (0-6); HEMATOCRIT 30.6 % (35.0-45.0); HEMOGLOBIN 10.4 g/dl (12.0-16.0); LYMPHOCYTES # (AUTO) 0.4 X10'3 (1.1-4.8); LYMPHOCYTES % (AUTO) 3.1 % (21-51); MEAN CORPUSCULAR HEMOGLOBIN 31.3 PG (27.0-31.0); MEAN CORPUSCULAR HGB CONC 33.9 g/dL (33.0-36.5); MEAN CORPUSCULAR VOLUME 92.2 FL (78-98); MEAN PLATELET VOLUME 8.3 FL (7.4-10.4); MONOCYTES # (AUTO) 0.5 X10'3 (0-0.9); MONOCYTES % (AUTO) 3.7 % (2-12); NEUTROPHILS # (AUTO) 11.8 X10'3 (1.8-7.7); NEUTROPHILS % (AUTO) 92.7 % (42-75); PLATELET COUNT 250 X10'3 (140-440); RED BLOOD COUNT 3.32 X10'6 (4.20-5.60); RED CELL DISTRIBUTION WIDTH 13.4 % (11.5-14.5); WHITE BLOOD COUNT 12.7 X10'3 (4.5-11.0)
[2021-09-13 03:26] LABS: D-DIMER 2.29 MG/L FEU (0-0.50)
[2021-09-13 03:31] LABS: ALANINE AMINOTRANSFERASE 17 U/L (12-78); ALBUMIN/GLOBULIN RATIO 0.6 (1.1-1.5); ALKALINE PHOSPHATASE 62 IU/L (46-116); ANION GAP 9 (8-16); ASPARTATE AMINO TRANSFERASE 27 U/L (10-37); BILIRUBIN,TOTAL 0.5 MG/DL (0.1-1.0); BLOOD UREA NITROGEN 29 MG/DL (7-18); BUN/CREATININE RATIO 21.8 (6.6-38.0); CALCIUM 6.1 MG/DL (8.5-10.1); CHLORIDE 114 MMOL/L (99-107); CREATININE 1.33 MG/DL (0.40-0.90); GLUCOSE 105 MG/DL (70-104); MAGNESIUM 1.5 MG/DL (1.5-2.4); PHOSPHORUS 3.3 MG/DL (2.3-4.5); POTASSIUM 3.6 MMOL/L (3.5-5.1); SODIUM 150 MMOL/L (135-145); TOTAL CARBON DIOXIDE 26.6 MMOL/L (24-32); TOTAL PROTEIN 5.5 G/DL (6.4-8.2); VANCOMYCIN,RANDOM 19.6 UG/ML; eGFR 41 ML/MIN
[2021-09-13] MEDS: lansoprazole 15mg solutab PO SCH (07:16)
[2021-09-13] MEDS: levoTHYROXINE 100mcg tablet PO SCH (07:16)
[2021-09-13] MEDS: lactobacillus rhamnosus 10,000 MMU CELLS/CAPSULE PO SCH (07:16)
[2021-09-13] MEDS: phenytoin 50mg chewable tablet PO SCH (07:17)
[2021-09-13] MEDS: enoxaparin 80mg/0.8ml syringe SUBCUT SCH ×2 (08:07→21:11)
[2021-09-13] MEDS: DOPamine 400mg/D5W 250ml 250 ML IV PRN (08:08)
[2021-09-13] MEDS: NORepinephrine 8mg/ 250ml NS 250 ML IV SCH (09:15)
[2021-09-13 09:33] LABS: TRIGLYCERIDES 224 MG/DL (20-135)
[2021-09-13] MEDS ORDERED: CALCIUM GLUC 1gm/50ml NACL,iso 50 ML IV ONE (11:00)
--- NOTE | 2021-09-13 11:24 | NUR ---
TF Consult: TF to start today per ear pull machine operator. Noted pt on PO Dilantin BID; okay to change to IV if needed per MD at rounds though BID dosage only requires EN be held for 1hr before and after feeds per clinical pharmacist. Pt receiving Propofol at 7.47ml/hr providing 197 kcals/day per EMR; can still meet pt needs w/ TF to run 20 hours/day updated recs below. RD notified RN of TF recs and recommendation to hold for one hour before/after PO Dilantin dosage. Serum Na 150 this AM w/ prior 100ml Q6H free water to increase to 200ml Q6H per ear pull machine operator. LBM 09/06; MD agreeable to starting routine bowel care at rounds. Will continue to monitor for TF tolerance and adjustment needs on vent. Recommendations: 1) Continuous TF using Vital High Protein at 66mL/hr goal rate to run 20 hours/day. To provide 1320mL total volume/day, 1320kcal, 116g protein, and 1109mL water. 2) HOLD TF FOR ONE HOUR BEFORE AND AFTER PO DILANTIN DOSAGE BID 3) monitor Propofol rate for TF adjustment needs 4) additional water flush 200ml Q6H per ear pull machine operator; monitor serum Na for adjustment needs 5) Prealbumin q Monday/; daily wts 6) Routine bowel care; 7 days constipation Addendum: 09/13/21 at [address] Amended: Links added. Addendum: 09/14/21 at [address] CORRECTION:* TF Consult: TF to start today per ear pull machine operator. Noted pt on PO Dilantin BID; okay to change to IV if needed per MD at rounds though BID dosage only requires EN be held for 1hr before and after admin per clinical pharmacist.
[2021-09-13] MEDS: docusate sodium 100mg/10ml UD cup OGT SCH ×2 (11:47→20:00)
[2021-09-13 12:15] LABS: PREALBUMIN 14.3 MG/DL (19-36)
[2021-09-13] MEDS: vancomycin/NS 1 GM ADD-VANTAGE 250 ML IV SCH (12:29)
[2021-09-13] MEDS ORDERED: acetaminophen 325mg/10.15ml oral unit dose solution OGT PRN ×2 (13:05→13:10)
[2021-09-13] MEDS ORDERED: ALPRAZolam 0.25mg tablet OGT PRN (13:05)
[2021-09-13] MEDS ORDERED: dextrose ORAL solution 15 GM/59 ML bottle OGT PRN ×2 (13:05)
[2021-09-13] MEDS ORDERED: guaiFENesin 200 MG/10 ML oral syrup UD cup OGT PRN (13:06)
[2021-09-13] MEDS ORDERED: mag hydrox/Alum hydrox/simeth 30ml oral suspension OGT PRN (13:10)
[2021-09-13] MEDS ORDERED: diphenhydrAMINE 25 MG/10 ML UD oral solution OGT PRN (13:10)
[2021-09-13] MEDS ORDERED: magnesium hydroxide 30ml (MOM) UD suspension OGT PRN (13:12)
[2021-09-13] MEDS: lactobacillus rhamnosus 10,000 MMU CELLS/CAPSULE OGT SCH (21:10)
[2021-09-13] MEDS: phenytoin 50mg chewable tablet OGT SCH (21:12)
[2021-09-13] MEDS: insulin glargine (Lantus) pen - multi-dose SQ SCH (22:19)
[2021-09-13] MEDS: insulin regular, human U-100 3ml vial - multi-dose SQ SCH (22:30)
[2021-09-14] VITALS (22 sets, daily range): BP systolic 88–130; BP diastolic 43–65
[2021-09-14] MEDS: NORepinephrine 8mg/ 250ml NS 250 ML IV SCH ×2 (01:19→17:20)
[2021-09-14] MEDS: propofol 1000mg/100ml bottle 100 ML IV SCH ×3 (02:37→19:25)
[2021-09-14] MEDS: FENTANYL-0.9 % NACL/PF 100 ML IV SCH ×4 (02:38→19:24)
[2021-09-14] MEDS: piperacillin/tazo 3.375gm/50ml 50 ML IV SCH ×2 (02:39→09:46)
[2021-09-14] MEDS: mineral oil/petrolatum ophthal oint EACHEYE SCH ×4 (02:40→19:23)
[2021-09-14] MEDS: methylPREDNISolone sod succ 125mg/2ml vial IV SCH ×3 (02:40→15:39)
[2021-09-14 02:47] LABS: ABG BASE EXCESS -0.8 mmol/L (-2.0-2.0); ABG HCO3 24.6 mmol/L (22.0-26.0); ABG OXYGEN SATURATION 90.1 % (94-97); ABG PCO2 (T) 41.5 mmHg (32.0-45.0); ABG PO2 (T) 55.7 mmHg (75.0-100.0); ALLEN'S TEST POSITIVE; FCOHb 0.1 % (0.0-3.9); FMetHb 0.3 % (0.0-1.5); FO2Hb 89.7 % (94-97); PATIENT TEMPERATURE 35.6; PEEP 16 cm H2O; RESPIRATORY RATE 22 b/min; TOTAL HEMOGLOBIN 11.1 G/dl (12.0-16.0)
[2021-09-14] MEDS: insulin regular, human U-100 3ml vial - multi-dose SQ SCH ×4 (02:58→21:48)
[2021-09-14 03:26] LABS: D-DIMER 2.02 MG/L FEU (0-0.50)
[2021-09-14 03:38] LABS: ALANINE AMINOTRANSFERASE 18 U/L (12-78); ALBUMIN 1.9 G/DL (3.4-5.0); ALBUMIN/GLOBULIN RATIO 0.5 (1.1-1.5); ALKALINE PHOSPHATASE 50 IU/L (46-116); ANION GAP 8 (8-16); ASPARTATE AMINO TRANSFERASE 24 U/L (10-37); BILIRUBIN,TOTAL 0.5 MG/DL (0.1-1.0); BLOOD UREA NITROGEN 28 MG/DL (7-18); BUN/CREATININE RATIO 22.2 (6.6-38.0); CALCIUM 6.4 MG/DL (8.5-10.1); CHLORIDE 114 MMOL/L (99-107); CREATININE 1.26 MG/DL (0.40-0.90); GLUCOSE 136 MG/DL (70-104); MAGNESIUM 1.7 MG/DL (1.5-2.4); PHOSPHORUS 3.2 MG/DL (2.3-4.5); POTASSIUM 3.6 MMOL/L (3.5-5.1); SODIUM 149 MMOL/L (135-145); TOTAL CARBON DIOXIDE 27.1 MMOL/L (24-32); TOTAL PROTEIN 5.4 G/DL (6.4-8.2); eGFR 43 ML/MIN
[2021-09-14 03:49] LABS: HEMATOCRIT 29.7 % (35.0-45.0); HEMOGLOBIN 10.5 g/dl (12.0-16.0); MEAN CORPUSCULAR HEMOGLOBIN 31.8 PG (27.0-31.0); MEAN CORPUSCULAR HGB CONC 35.3 g/dL (33.0-36.5); MEAN CORPUSCULAR VOLUME 90.2 FL (78-98); RED BLOOD COUNT 3.29 X10'6 (4.20-5.60); RED CELL DISTRIBUTION WIDTH 13.5 % (11.5-14.5)
[2021-09-14 03:50] LABS: LYMPHOCYTES % (AUTO) 5.3 % (21-51); MEAN PLATELET VOLUME 8.1 FL (7.4-10.4); MONOCYTES % (AUTO) 4.2 % (2-12); NEUTROPHILS % (AUTO) 90.1 % (42-75); PLATELET COUNT 239 X10'3 (140-440)
[2021-09-14 03:51] LABS: BASOPHILS % (AUTO) 0.2 % (0-1); EOSINOPHILS % (AUTO) 0.2 % (0-6); LYMPHOCYTES # (AUTO) 0.5 X10'3 (1.1-4.8); MONOCYTES # (AUTO) 0.4 X10'3 (0-0.9)
[2021-09-14 04:57] LABS: TOTAL CELLS COUNTED 100
[2021-09-14 04:58] LABS: PLATELET ESTIMATE NORMAL
[2021-09-14 04:59] LABS: LARGE PLATELETS FEW
[2021-09-14] MEDS: enoxaparin 80mg/0.8ml syringe SUBCUT SCH (08:00)
[2021-09-14] MEDS: lactobacillus rhamnosus 10,000 MMU CELLS/CAPSULE OGT SCH ×2 (08:16→19:24)
[2021-09-14] MEDS: docusate sodium 100mg/10ml UD cup OGT SCH ×2 (08:16→19:23)
[2021-09-14] MEDS: lansoprazole 15mg solutab OGT SCH (08:16)
[2021-09-14] MEDS: levoTHYROXINE 100mcg tablet OGT SCH (08:17)
[2021-09-14] MEDS: phenytoin 50mg chewable tablet OGT SCH ×2 (08:17→19:24)
[2021-09-14] MEDS: DOPamine 400mg/D5W 250ml 250 ML IV PRN (08:47)
[2021-09-14 10:08] LABS: PARTIAL THROMBOPLASTIN TIME 28 SECONDS (22-32)
[2021-09-14] MEDS ORDERED: magnesium citrate 296ml oral solution PO ONE (11:10)
[2021-09-14] MEDS: vancomycin/NS 1 GM ADD-VANTAGE 250 ML IV SCH (12:02)
--- NOTE | 2021-09-14 13:43 | NUR ---
F/u: Pt with no BM since 09/06 while receiving routine Colace. Pt with PRN MoM available given on 09/04 with additional PRN Reglan and Dulcolax suppository, neither given per EMR. Discussed 8 day constipation with , pt to receive one time dose of Mag Citrate, d/w celeste SAM. Addendum: 09/14/21 at [address] Amended: Links added.
[2021-09-14] MEDS: insulin glargine (Lantus) pen - multi-dose SQ SCH (21:45)
[2021-09-15] VITALS (23 sets, daily range): BP systolic 89–150; BP diastolic 40–80
[2021-09-15] MEDS: methylPREDNISolone sod succ 125mg/2ml vial IV SCH ×4 (01:08→23:04)
[2021-09-15] MEDS: propofol 1000mg/100ml bottle 100 ML IV SCH ×4 (01:08→17:36)
[2021-09-15] MEDS: FENTANYL-0.9 % NACL/PF 100 ML IV SCH ×2 (01:08→07:35)
[2021-09-15] MEDS: mineral oil/petrolatum ophthal oint EACHEYE SCH ×4 (01:09→19:54)
[2021-09-15] MEDS: DOPamine 400mg/D5W 250ml 250 ML IV PRN ×3 (01:43→21:26)
[2021-09-15] MEDS: insulin regular, human U-100 3ml vial - multi-dose SQ SCH ×4 (02:02→20:24)
[2021-09-15 03:29] LABS: BASOPHILS # (AUTO) 0.1 X10'3 (0-0.2); BASOPHILS % (AUTO) 0.3 % (0-1); EOSINOPHILS % (AUTO) 0.2 % (0-6); HEMATOCRIT 31.4 % (35.0-45.0); HEMOGLOBIN 10.8 g/dl (12.0-16.0); LYMPHOCYTES # (AUTO) 0.3 X10'3 (1.1-4.8); LYMPHOCYTES % (AUTO) 1.4 % (21-51); MEAN CORPUSCULAR HEMOGLOBIN 30.9 PG (27.0-31.0); MEAN CORPUSCULAR HGB CONC 34.4 g/dL (33.0-36.5); MEAN PLATELET VOLUME 8.6 FL (7.4-10.4); MONOCYTES # (AUTO) 0.6 X10'3 (0-0.9); MONOCYTES % (AUTO) 2.8 % (2-12); NEUTROPHILS # (AUTO) 19.1 X10'3 (1.8-7.7); NEUTROPHILS % (AUTO) 95.3 % (42-75); PLATELET COUNT 284 X10'3 (140-440); RED BLOOD COUNT 3.48 X10'6 (4.20-5.60); RED CELL DISTRIBUTION WIDTH 13.6 % (11.5-14.5)
[2021-09-15 03:39] LABS: D-DIMER 3.43 MG/L FEU (0-0.50)
[2021-09-15 03:41] LABS: ALANINE AMINOTRANSFERASE 22 U/L (12-78); ALBUMIN/GLOBULIN RATIO 0.5 (1.1-1.5); ALKALINE PHOSPHATASE 57 IU/L (46-116); ANION GAP 9 (8-16); ASPARTATE AMINO TRANSFERASE 22 U/L (10-37); BILIRUBIN,TOTAL 0.5 MG/DL (0.1-1.0); BLOOD UREA NITROGEN 34 MG/DL (7-18); BUN/CREATININE RATIO 27.4 (6.6-38.0); CALCIUM 6.4 MG/DL (8.5-10.1); CHLORIDE 112 MMOL/L (99-107); CREATININE 1.24 MG/DL (0.40-0.90); GLUCOSE 103 MG/DL (70-104); MAGNESIUM 1.9 MG/DL (1.5-2.4); PHOSPHORUS 2.9 MG/DL (2.3-4.5); SODIUM 147 MMOL/L (135-145); TOTAL CARBON DIOXIDE 26.2 MMOL/L (24-32); TOTAL PROTEIN 5.7 G/DL (6.4-8.2); eGFR 44 ML/MIN
[2021-09-15 04:05] LABS: ABG BASE EXCESS -2.1 mmol/L (-2.0-2.0); ABG HCO3 24.8 mmol/L (22.0-26.0); ABG OXYGEN SATURATION 68.6 % (94-97); ABG PCO2 (T) 53.4 mmHg (32.0-45.0); ABG PO2 (T) 38.3 mmHg (75.0-100.0); ALLEN'S TEST Modified; FCOHb 1.2 % (0.0-3.9); FMetHb 0.1 % (0.0-1.5); FO2Hb 67.7 % (94-97); PATIENT TEMPERATURE 37.6; PEEP 16 cm H2O; RESPIRATORY RATE 22 b/min; TOTAL HEMOGLOBIN 11.6 G/dl (12.0-16.0)
[2021-09-15 04:20] LABS: TOTAL CELLS COUNTED 100
[2021-09-15 04:22] LABS: PLATELET ESTIMATE NORMAL
[2021-09-15 04:35] LABS: ABG BASE EXCESS -3.5 mmol/L (-2.0-2.0); ABG HCO3 22.1 mmol/L (22.0-26.0); ABG OXYGEN SATURATION 93.8 % (94-97); ABG PCO2 (T) 42.7 mmHg (32.0-45.0); ABG PO2 (T) 78.7 mmHg (75.0-100.0); ALLEN'S TEST POSITIVE; FMetHb 0.3 % (0.0-1.5); FO2Hb 92.6 % (94-97); PATIENT TEMPERATURE 37.5; PEEP 16 cm H2O; RESPIRATORY RATE 22 b/min; TOTAL HEMOGLOBIN 11.9 G/dl (12.0-16.0)
[2021-09-15] MEDS ORDERED: NORMAL SALINE IV ONE (05:25)
[2021-09-15] MEDS ORDERED: POTASSIUM CL IV ONE (05:25)
[2021-09-15] MEDS: potassium Cl 20mEq/100mL bag 100 ML IV SCH ×3 (05:56→08:44)
--- NOTE | 2021-09-15 07:00 | NUR ---
Restraints discontinued, pt adequately sedated, not pulling on lines and tubes.
[2021-09-15] MEDS: ipratropium/albuterol 3ml nebule NEB SCH ×5 (07:55→23:23)
[2021-09-15] MEDS: docusate sodium 100mg/10ml UD cup OGT SCH ×2 (08:00→19:53)
[2021-09-15] MEDS: phenytoin 50mg chewable tablet OGT SCH ×2 (08:12→19:53)
[2021-09-15] MEDS: lactobacillus rhamnosus 10,000 MMU CELLS/CAPSULE OGT SCH ×2 (08:12→19:53)
[2021-09-15] MEDS: levoTHYROXINE 100mcg tablet OGT SCH (08:12)
[2021-09-15] MEDS: lansoprazole 15mg solutab OGT SCH (08:12)
[2021-09-15] MEDS: cefepime 1GM in D5W 50mL 50 ML IV SCH ×3 (08:13→23:04)
[2021-09-15] MEDS: enoxaparin 40mg/0.4ml syringe SUBCUT SCH (08:24)
[2021-09-15] MEDS: NORepinephrine 8mg/ 250ml NS 250 ML IV SCH (09:27)
[2021-09-15] MEDS ORDERED: furosemide 40mg/4ml inj ONE (09:56)
[2021-09-15] MEDS ORDERED: furosemide 40mg/4ml inj IV ONE (10:10)
[2021-09-15] MEDS: midazolam 100mg in NS 100ml 100 ML IV PRN ×2 (10:13→20:41)
[2021-09-15] MEDS ORDERED: VECuronium br 10mg inj. IV ONE (10:15)
[2021-09-15] MEDS: fentaNYL/NS/PF 2,500 mcg/250mL 250 ML IV SCH ×2 (10:18→17:50)
[2021-09-15 11:52] LABS: ABG BASE EXCESS -4.4 mmol/L (-2.0-2.0); ABG OXYGEN SATURATION 89.6 % (94-97); ABG PCO2 (T) 45.4 mmHg (32.0-45.0); ABG PO2 (T) 60.1 mmHg (75.0-100.0); ALLEN'S TEST POSITIVE; FCOHb 0.9 % (0.0-3.9); FMetHb 0.3 % (0.0-1.5); FO2Hb 88.5 % (94-97); PATIENT TEMPERATURE 36.9; PEEP 16 cm H2O; RESPIRATORY RATE 22 b/min; TOTAL HEMOGLOBIN 11.3 G/dl (12.0-16.0)
--- NOTE | 2021-09-15 12:16 | NUR ---
F/u: Noted Propofol rate has increased to 19.92 mL/hr, though possibly to decrease per MD at critical care rounds. Will place updated TF recommendations below for IF Propofol rate does not change. Estimated energy needs will be met with combined kcal from TF and Propofol though estimated protein needs will not be met without overfeeding on the vent. Per EMR pt still without a BM since 09/06 however RN reports 400 mL stool output this morning. Will continue to follow closely and make recommendations as appropriate. Recommendations: 1) Continuous TF using Vital High Protein at 66 mL/hr goal rate to run 20 hours/day. To provide 1320 mL total volume/day, 1320 kcal, 116 g protein, and 1109 mL water. 2) HOLD TF FOR ONE HOUR BEFORE AND AFTER OGT DILANTIN DOSAGE BID 3) IF Propofol to continue at 19.92 mL/hr, decrease TF goal rate to 52 mL/hr x 20 hours/day to provide 1040 mL total volume/day, 1040 kcal, 91 g protein, and 869 mL water. Will meet estimated energy needs with kcal from Propofol and ~86% estimated protein needs 4) Monitor Propofol rate for TF adjustment needs 5) Additional 200 mL water flush Q6H per grain drier operator; monitor serum Na for adjustment needs 6) Prealbumin q Monday/ 7) Daily scaled wts 8) Routine bowel care; previous 8 days constipation Addendum: 09/15/21 at [address] Amended: Links added.
[2021-09-15] MEDS: vancomycin/NS 1 GM ADD-VANTAGE 250 ML IV SCH (13:13)
[2021-09-15] MEDS: insulin glargine (Lantus) pen - multi-dose SQ SCH (20:39)
[2021-09-16] VITALS (24 sets, daily range): BP systolic 98–129; BP diastolic 41–57
[2021-09-16] MEDS: NORepinephrine 8mg/ 250ml NS 250 ML IV SCH ×2 (01:31→17:35)
[2021-09-16] MEDS: FENTANYL-0.9 % NACL/PF 100 ML IV SCH ×9 (01:53→23:15)
[2021-09-16] MEDS: mineral oil/petrolatum ophthal oint EACHEYE SCH ×4 (02:21→20:02)
[2021-09-16] MEDS: insulin regular, human U-100 3ml vial - multi-dose SQ SCH ×3 (02:23→14:11)
[2021-09-16] MEDS: ipratropium/albuterol 3ml nebule NEB SCH ×6 (03:02→22:57)
[2021-09-16 03:21] LABS: ABG BASE EXCESS -4.1 mmol/L (-2.0-2.0); ABG HCO3 22.4 mmol/L (22.0-26.0); ABG OXYGEN SATURATION 89.9 % (94-97); ABG PCO2 (T) 47.1 mmHg (32.0-45.0); ABG PO2 (T) 61.6 mmHg (75.0-100.0); ALLEN'S TEST Modified; FMetHb 0.1 % (0.0-1.5); FO2Hb 88.9 % (94-97); PATIENT TEMPERATURE 37.1; PEEP 16 cm H2O; RESPIRATORY RATE 24 b/min; TOTAL HEMOGLOBIN 10.7 G/dl (12.0-16.0)
--- NOTE | 2021-09-16 03:28 | NUR ---
Pt is a 61 yo female, admitted 09/02/2021, Full code, NDA, NO isolation, no restraints. Admitted with COVID PNA, declined, transferred to ICU and emergently intubated. Currently, pt is sedated on Fentanyl at 350 mcgs, Versed at 7 mg. and Propofol at 30 mcgs. Pt us unresponsive, tolerating sedation. Afebrile. HR 89 SR, BP 105/46, supported with Dopamine at 9 mcgs. Good pulses, generalized edema +2 +3. All IVF infusing via LC TLC. Dressing CDI. Intubated with 8.0 ETT 23 cm, VENT: AC/PC rate 24, TV 429, PEEP 16 FIO2 100%, saturation 89-90%. Breath sounds are coarse, equal symmetrical non labored, tolerating vent setting well. suction for minimal secretion, bonilla/ white in color. Hypoactive bowel sounds, OG tube infusing Vital HP at 66 ml's with water flushes Q 6 hours 200 ml's. low residuals noted. Rectal tube in place, draining brown watery stool. Abdomen large round obese abdomen. Glucose chesks Q 6 hours 2000 glucose 186 and 0200 169. Bladder non distended, Medina draining CYU. Skin noted with bruises, no open areas to account. Pt is very unstable to turn, can only turn to left side and to lay o supine. Pt remains safe. Continue to monitor.
[2021-09-16 03:42] LABS: D-DIMER 4.33 MG/L FEU (0-0.50)
[2021-09-16 03:44] LABS: BASOPHILS # (AUTO) 0.1 X10'3 (0-0.2); BASOPHILS % (AUTO) 0.4 % (0-1); EOSINOPHILS % (AUTO) 0.1 % (0-6); HEMATOCRIT 27.3 % (35.0-45.0); HEMOGLOBIN 9.5 g/dl (12.0-16.0); LYMPHOCYTES # (AUTO) 0.3 X10'3 (1.1-4.8); LYMPHOCYTES % (AUTO) 1.7 % (21-51); MEAN CORPUSCULAR VOLUME 91.4 FL (78-98); MEAN PLATELET VOLUME 8.7 FL (7.4-10.4); MONOCYTES # (AUTO) 0.4 X10'3 (0-0.9); MONOCYTES % (AUTO) 2.8 % (2-12); NEUTROPHILS # (AUTO) 14.7 X10'3 (1.8-7.7); PLATELET COUNT 249 X10'3 (140-440); RED BLOOD COUNT 2.98 X10'6 (4.20-5.60); RED CELL DISTRIBUTION WIDTH 13.7 % (11.5-14.5); WHITE BLOOD COUNT 15.5 X10'3 (4.5-11.0)
[2021-09-16 04:01] LABS: MAGNESIUM 1.8 MG/DL (1.5-2.4); PHOSPHORUS 3.1 MG/DL (2.3-4.5); PREALBUMIN 22.9 MG/DL (19-36)
[2021-09-16] MEDS: propofol 1000mg/100ml bottle 100 ML IV SCH ×2 (05:47→14:12)
[2021-09-16 07:08] LABS: ALANINE AMINOTRANSFERASE 18 U/L (12-78); ALBUMIN/GLOBULIN RATIO 0.6 (1.1-1.5); ALKALINE PHOSPHATASE 67 IU/L (46-116); ANION GAP 12 (8-16); ASPARTATE AMINO TRANSFERASE 20 U/L (10-37); BILIRUBIN,TOTAL 0.3 MG/DL (0.1-1.0); BLOOD UREA NITROGEN 39 MG/DL (7-18); BUN/CREATININE RATIO 28.3 (6.6-38.0); CALCIUM 6.5 MG/DL (8.5-10.1); CHLORIDE 114 MMOL/L (99-107); CREATININE 1.38 MG/DL (0.40-0.90); GLUCOSE 169 MG/DL (70-104); SODIUM 149 MMOL/L (135-145); TOTAL CARBON DIOXIDE 23.1 MMOL/L (24-32); TOTAL PROTEIN 5.6 G/DL (6.4-8.2); eGFR 39 ML/MIN
[2021-09-16] MEDS: DOPamine 400mg/D5W 250ml 250 ML IV PRN ×2 (07:09→16:58)
[2021-09-16] MEDS: enoxaparin 40mg/0.4ml syringe SUBCUT SCH (07:54)
[2021-09-16] MEDS: lactobacillus rhamnosus 10,000 MMU CELLS/CAPSULE OGT SCH ×2 (07:54→20:01)
[2021-09-16] MEDS: methylPREDNISolone sod succ 125mg/2ml vial IV SCH ×2 (07:54→16:52)
[2021-09-16] MEDS: levoTHYROXINE 100mcg tablet OGT SCH (07:54)
[2021-09-16] MEDS: docusate sodium 100mg/10ml UD cup OGT SCH ×2 (07:54→20:02)
[2021-09-16] MEDS: lansoprazole 15mg solutab OGT SCH (07:54)
[2021-09-16] MEDS: cefepime 1GM in D5W 50mL 50 ML IV SCH ×2 (07:55→16:52)
[2021-09-16] MEDS: phenytoin 50mg chewable tablet OGT SCH ×2 (07:56→21:46)
[2021-09-16] MEDS ORDERED: mineral oil/petrolatum ophthal oint EACHEYE SCH (08:00)
--- NOTE | 2021-09-16 09:40 | NUR ---
Noted pt with a low Vargas of 10. Per physical assessment pt with bilat general and facial 2+ edema and bilat periorbital 1+ trace edema and skin is intact. Pt already receiving increased protein with TF d/t COVID and intubation. No further nutrition intervention warranted at this time. Will continue to follow. Addendum: 09/16/21 at [address] Amended: Links added.
[2021-09-16] MEDS ORDERED: magnesium 2GM in 50ml NS 50 ML IV ONE (09:45)
[2021-09-16 10:03] LABS: TRIGLYCERIDES 137 MG/DL (20-135)
[2021-09-16] MEDS: midazolam 100mg in NS 100ml 100 ML IV PRN ×2 (10:08→21:03)
[2021-09-16] MEDS ORDERED: VANCOMYCIN LEVEL IV ONE (11:30)
[2021-09-16] MEDS: insulin glargine (Lantus) pen - multi-dose SQ SCH (21:00)
[2021-09-17] VITALS (24 sets, daily range): BP systolic 104–131; BP diastolic 43–59
[2021-09-17] MEDS ORDERED: vancomycin inj. 750 MG in normal saline 250ml IV soln 250 ML IV SCH (02:00)
[2021-09-17] MEDS: DOPamine 400mg/D5W 250ml 250 ML IV PRN ×3 (02:50→18:37)
[2021-09-17] MEDS: FENTANYL-0.9 % NACL/PF 100 ML IV SCH ×8 (02:51→21:12)
[2021-09-17] MEDS: ipratropium/albuterol 3ml nebule NEB SCH ×6 (03:05→23:13)
[2021-09-17 03:24] LABS: ABG BASE EXCESS -4.1 mmol/L (-2.0-2.0); ABG HCO3 22.7 mmol/L (22.0-26.0); ABG OXYGEN SATURATION 91.1 % (94-97); ABG PCO2 (T) 50.2 mmHg (32.0-45.0); ABG PO2 (T) 63.6 mmHg (75.0-100.0); ALLEN'S TEST Modified; FMetHb 0.3 % (0.0-1.5); FO2Hb 89.9 % (94-97); PEEP 16 cm H2O; RESPIRATORY RATE 24 b/min; TOTAL HEMOGLOBIN 9.2 G/dl (12.0-16.0)
[2021-09-17 03:35] LABS: BASOPHILS # (AUTO) 0.1 X10'3 (0-0.2); BASOPHILS % (AUTO) 0.5 % (0-1); EOSINOPHILS # (AUTO) 0.1 X10'3 (0-0.9); EOSINOPHILS % (AUTO) 0.4 % (0-6); HEMATOCRIT 24.1 % (35.0-45.0); HEMOGLOBIN 8.4 g/dl (12.0-16.0); LYMPHOCYTES # (AUTO) 0.6 X10'3 (1.1-4.8); LYMPHOCYTES % (AUTO) 4.1 % (21-51); MEAN CORPUSCULAR HEMOGLOBIN 32.1 PG (27.0-31.0); MEAN CORPUSCULAR HGB CONC 35.1 g/dL (33.0-36.5); MEAN CORPUSCULAR VOLUME 91.6 FL (78-98); MEAN PLATELET VOLUME 8.7 FL (7.4-10.4); MONOCYTES # (AUTO) 0.5 X10'3 (0-0.9); MONOCYTES % (AUTO) 3.7 % (2-12); NEUTROPHILS # (AUTO) 12.5 X10'3 (1.8-7.7); NEUTROPHILS % (AUTO) 91.3 % (42-75); PLATELET COUNT 228 X10'3 (140-440); RED BLOOD COUNT 2.63 X10'6 (4.20-5.60); RED CELL DISTRIBUTION WIDTH 13.9 % (11.5-14.5); WHITE BLOOD COUNT 13.7 X10'3 (4.5-11.0)
[2021-09-17 03:48] LABS: D-DIMER 3.35 MG/L FEU (0-0.50)
[2021-09-17 03:54] LABS: ALANINE AMINOTRANSFERASE 15 U/L (12-78); ALBUMIN 1.7 G/DL (3.4-5.0); ALBUMIN/GLOBULIN RATIO 0.5 (1.1-1.5); ALKALINE PHOSPHATASE 70 IU/L (46-116); ANION GAP 7 (8-16); ASPARTATE AMINO TRANSFERASE 19 U/L (10-37); BILIRUBIN,TOTAL 0.3 MG/DL (0.1-1.0); BLOOD UREA NITROGEN 45 MG/DL (7-18); CALCIUM 6.7 MG/DL (8.5-10.1); CHLORIDE 114 MMOL/L (99-107); CREATININE 1.25 MG/DL (0.40-0.90); GLUCOSE 157 MG/DL (70-104); PHOSPHORUS 3.7 MG/DL (2.3-4.5); POTASSIUM 4.3 MMOL/L (3.5-5.1); SODIUM 146 MMOL/L (135-145); TOTAL CARBON DIOXIDE 25.4 MMOL/L (24-32); TOTAL PROTEIN 5.2 G/DL (6.4-8.2); TRIGLYCERIDES 87 MG/DL (20-135); eGFR 44 ML/MIN
[2021-09-17] MEDS: methylPREDNISolone sod succ/PF 40mg inj. IV SCH ×3 (03:55→15:35)
[2021-09-17] MEDS: midazolam 100mg in NS 100ml 100 ML IV PRN ×4 (04:09→21:13)
[2021-09-17 05:03] LABS: TOTAL CELLS COUNTED 100
[2021-09-17 05:04] LABS: LARGE PLATELETS FEW; PLATELET ESTIMATE NORMAL
[2021-09-17] MEDS ORDERED: VECuronium br 10mg inj. IV ONE (08:00)
[2021-09-17] MEDS: docusate sodium 100mg/10ml UD cup OGT SCH ×2 (08:00→19:58)
[2021-09-17] MEDS: mineral oil/petrolatum ophthal oint EACHEYE SCH ×3 (08:00→20:02)
[2021-09-17] MEDS: phenytoin 50mg chewable tablet OGT SCH ×2 (08:13→20:01)
[2021-09-17] MEDS: levoTHYROXINE 100mcg tablet OGT SCH (08:13)
[2021-09-17] MEDS: lansoprazole 15mg solutab OGT SCH (08:13)
[2021-09-17] MEDS: enoxaparin 40mg/0.4ml syringe SUBCUT SCH ×2 (08:15→20:00)
[2021-09-17] MEDS: lactobacillus rhamnosus 10,000 MMU CELLS/CAPSULE OGT SCH ×2 (08:16→19:59)
[2021-09-17] MEDS: insulin regular, human U-100 3ml vial - multi-dose SQ SCH ×3 (08:52→20:08)
[2021-09-17] MEDS: NORepinephrine 8mg/ 250ml NS 250 ML IV SCH (09:39)
[2021-09-17] MEDS: propofol 1000mg/100ml bottle 100 ML IV SCH ×3 (10:32→18:37)
--- NOTE | 2021-09-17 14:19 | NUR ---
Reassessment: Pt remains intubated and tolerating TF at goal rate with GRV WNL. Received TC from RN regarding increase in Propofol rate, currently running at 24.9 mL/hr providing roughly 657 kcal/day. TF recommendations have been adjusted accordingly and d/w RN, see below. LBM 09/16, documented with 800 mL stool output with a rectal tube in place per EMR. Pt previously with 8 days without a BM. Will continue to follow and monitor need for further adjustments to nutrition recommendations. Recommendations: 1) Given Propofol at 24.9 mL/hr (~657 kcal/day), continuous Vital High Protein at 46 mL/hr for 20 hours/day to provide 920 mL total volume/day, 920 kcal, 81 g protein, and 769 mL water. Will meet estimated energy needs when combined with kcal from Propofol and 77% estimated protein needs 2) Once Propofol is discontinued, continuous TF using Vital High Protein at 66 mL/hr goal rate to run 20 hours/day. To provide 1320 mL total volume/day, 1320 kcal, 116 g protein, and 1109 mL water. 3) HOLD TF FOR ONE HOUR BEFORE AND AFTER OGT DILANTIN DOSAGE BID 4) Monitor Propofol rate for TF adjustment needs 5) Additional 200 mL water flush Q6H per comedian; monitor serum Na for adjustment needs 6) Prealbumin q Monday/ 7) Daily scaled wts 8) Routine bowel care; previous 8 days constipation Addendum: 09/17/21 at [address] Amended: Links added.
[2021-09-17] MEDS: insulin glargine (Lantus) pen - multi-dose SQ SCH (20:07)
[2021-09-18] VITALS (24 sets, daily range): BP systolic 87–120; BP diastolic 39–57
[2021-09-18] MEDS: methylPREDNISolone sod succ/PF 40mg inj. IV SCH ×3 (01:13→15:52)
[2021-09-18] MEDS: FENTANYL-0.9 % NACL/PF 100 ML IV SCH ×9 (01:14→22:32)
[2021-09-18] MEDS: propofol 1000mg/100ml bottle 100 ML IV SCH ×4 (01:32→15:52)
[2021-09-18] MEDS: midazolam 100mg in NS 100ml 100 ML IV PRN ×5 (01:32→22:32)
[2021-09-18] MEDS: NORepinephrine 8mg/ 250ml NS 250 ML IV SCH ×2 (01:43→17:47)
[2021-09-18] MEDS: mineral oil/petrolatum ophthal oint EACHEYE SCH ×4 (02:00→20:45)
--- NOTE | 2021-09-18 03:00 | NUR ---
PT BSG 70 for 0200 check. Per protocol pt is now level 5 on insulin scale.
[2021-09-18] MEDS: ipratropium/albuterol 3ml nebule NEB SCH ×6 (03:06→23:39)
[2021-09-18 03:29] LABS: ABG BASE EXCESS -3.1 mmol/L (-2.0-2.0); ABG HCO3 24.2 mmol/L (22.0-26.0); ABG OXYGEN SATURATION 78.4 % (94-97); ABG PCO2 (T) 57.9 mmHg (32.0-45.0); ABG PO2 (T) 43.6 mmHg (75.0-100.0); ALLEN'S TEST Modified; FMetHb 0.4 % (0.0-1.5); FO2Hb 77.3 % (94-97); PATIENT TEMPERATURE 37.4; PEEP 16 cm H2O; RESPIRATORY RATE 24 b/min; TOTAL HEMOGLOBIN 7.7 G/dl (12.0-16.0)
[2021-09-18 03:56] LABS: ABG BASE EXCESS -3.8 mmol/L (-2.0-2.0); ABG HCO3 23.3 mmol/L (22.0-26.0); ABG OXYGEN SATURATION 88.6 % (94-97); ABG PCO2 (T) 53.7 mmHg (32.0-45.0); ABG PO2 (T) 56.6 mmHg (75.0-100.0); ALLEN'S TEST Modified; FCOHb 0.9 % (0.0-3.9); FMetHb 0.5 % (0.0-1.5); FO2Hb 87.4 % (94-97); PATIENT TEMPERATURE 37.4; PEEP 16 cm H2O; RESPIRATORY RATE 24 b/min; TOTAL HEMOGLOBIN 8.7 G/dl (12.0-16.0)
[2021-09-18] MEDS ORDERED: CISatracurium **Bolus** 2 mg/ml inj IV PRN (04:30)
[2021-09-18 04:40] LABS: BASOPHILS # (AUTO) 0.1 X10'3 (0-0.2); BASOPHILS % (AUTO) 0.5 % (0-1); EOSINOPHILS # (AUTO) 0.2 X10'3 (0-0.9); EOSINOPHILS % (AUTO) 1.5 % (0-6); HEMATOCRIT 23.3 % (35.0-45.0); LYMPHOCYTES # (AUTO) 0.5 X10'3 (1.1-4.8); LYMPHOCYTES % (AUTO) 3.2 % (21-51); MEAN CORPUSCULAR HEMOGLOBIN 31.9 PG (27.0-31.0); MEAN CORPUSCULAR HGB CONC 34.3 g/dL (33.0-36.5); MEAN CORPUSCULAR VOLUME 93.1 FL (78-98); MONOCYTES # (AUTO) 0.6 X10'3 (0-0.9); MONOCYTES % (AUTO) 3.7 % (2-12); NEUTROPHILS # (AUTO) 14.9 X10'3 (1.8-7.7); NEUTROPHILS % (AUTO) 91.1 % (42-75); PLATELET COUNT 239 X10'3 (140-440); RED CELL DISTRIBUTION WIDTH 14.3 % (11.5-14.5); WHITE BLOOD COUNT 16.3 X10'3 (4.5-11.0)
[2021-09-18 04:47] LABS: D-DIMER 2.92 MG/L FEU (0-0.50)
--- NOTE | 2021-09-18 05:00 | NUR ---
Duglas MOTT rounded on pt at 0430 this AM. We are using Nimbex to paralyze patient. Initial bolus dose of 10 mg, and start titratable drip to achieve a goal of 2/4 TOF.
[2021-09-18 05:06] LABS: ALANINE AMINOTRANSFERASE 20 U/L (12-78); ALBUMIN 1.5 G/DL (3.4-5.0); ALBUMIN/GLOBULIN RATIO 0.4 (1.1-1.5); ALKALINE PHOSPHATASE 65 IU/L (46-116); ANION GAP 7 (8-16); ASPARTATE AMINO TRANSFERASE 19 U/L (10-37); BILIRUBIN,TOTAL 0.3 MG/DL (0.1-1.0); BLOOD UREA NITROGEN 49 MG/DL (7-18); BUN/CREATININE RATIO 38.9 (6.6-38.0); CALCIUM 6.8 MG/DL (8.5-10.1); CREATININE 1.26 MG/DL (0.40-0.90); GLUCOSE 63 MG/DL (70-104); PHOSPHORUS 3.4 MG/DL (2.3-4.5); SODIUM 146 MMOL/L (135-145); TOTAL CARBON DIOXIDE 25.2 MMOL/L (24-32); TOTAL PROTEIN 5.2 G/DL (6.4-8.2); eGFR 43 ML/MIN
[2021-09-18 05:09] LABS: CHLORIDE 114 MMOL/L (99-107)
--- NOTE | 2021-09-18 05:15 | NUR ---
RT notified that MD wants a repeat gas after paralytic started.
[2021-09-18] MEDS: CISatracurium besylate inj. 100 MG in normal saline 100ml IV soln 90 ML IV SCH ×2 (05:29→12:17)
[2021-09-18 05:31] LABS: TOTAL CELLS COUNTED 100
[2021-09-18 05:32] LABS: PLATELET ESTIMATE NORMAL
[2021-09-18] MEDS: docusate sodium 100mg/10ml UD cup OGT SCH ×2 (08:00→19:49)
[2021-09-18] MEDS: levoTHYROXINE 100mcg tablet OGT SCH (08:28)
[2021-09-18] MEDS: lansoprazole 15mg solutab OGT SCH (08:28)
[2021-09-18] MEDS: lactobacillus rhamnosus 10,000 MMU CELLS/CAPSULE OGT SCH ×2 (08:29→19:49)
[2021-09-18] MEDS: phenytoin 50mg chewable tablet OGT SCH ×2 (08:29→19:49)
[2021-09-18] MEDS: enoxaparin 40mg/0.4ml syringe SUBCUT SCH ×2 (08:30→19:49)
[2021-09-18] MEDS: insulin regular, human U-100 3ml vial - multi-dose SQ SCH ×3 (08:39→20:49)
[2021-09-18 10:30] LABS: ABG BASE EXCESS -6.1 mmol/L (-2.0-2.0); ABG HCO3 23.2 mmol/L (22.0-26.0); ABG OXYGEN SATURATION 92.9 % (94-97); ABG PCO2 (T) 71.9 mmHg (32.0-45.0); ABG PO2 (T) 74.5 mmHg (75.0-100.0); ALLEN'S TEST POSITIVE; FCOHb 1.5 % (0.0-3.9); FMetHb 0.5 % (0.0-1.5); PATIENT TEMPERATURE 37.2; PEEP 16 cm H2O; RESPIRATORY RATE 24 b/min; TOTAL HEMOGLOBIN 8.5 G/dl (12.0-16.0)
[2021-09-18] MEDS: DOPamine 400mg/D5W 250ml 250 ML IV PRN (11:09)
--- NOTE | 2021-09-18 15:34 | NUR ---
Unable to reach paralytic goal of TOF 1-2/4 despite titrating Nimbex drip upwards as ordered, pt remains on TOF 4/4 twitches on 8, Dr Huynh made aware and present at bedside. Pt's O2 sats stable @ 93-96%, Dr Huynh ordered to turn Nimbex drip off to see if patient's O2 sats will hold steady wnl without the paralytic. Will continue to monitor.
[2021-09-18] MEDS: insulin glargine (Lantus) pen - multi-dose SQ SCH (20:48)
[2021-09-19] VITALS (24 sets, daily range): BP systolic 89–131; BP diastolic 41–65
[2021-09-19] MEDS: methylPREDNISolone sod succ/PF 40mg inj. IV SCH ×4 (00:59→23:51)
[2021-09-19] MEDS: FENTANYL-0.9 % NACL/PF 100 ML IV SCH ×8 (01:25→21:37)
[2021-09-19] MEDS: mineral oil/petrolatum ophthal oint EACHEYE SCH ×4 (02:00→20:00)
[2021-09-19] MEDS: DOPamine 400mg/D5W 250ml 250 ML IV PRN ×3 (03:35→16:57)
[2021-09-19] MEDS: midazolam 100mg in NS 100ml 100 ML IV PRN ×5 (03:35→22:32)
[2021-09-19] MEDS: insulin regular, human U-100 3ml vial - multi-dose SQ SCH ×4 (03:39→21:29)
[2021-09-19] MEDS: ipratropium/albuterol 3ml nebule NEB SCH ×6 (03:58→23:15)
[2021-09-19 04:17] LABS: ABG BASE EXCESS -6.9 mmol/L (-2.0-2.0); ABG HCO3 20.3 mmol/L (22.0-26.0); ABG OXYGEN SATURATION 95.9 % (94-97); ABG PCO2 (T) 49.1 mmHg (32.0-45.0); ABG PO2 (T) 88.9 mmHg (75.0-100.0); ALLEN'S TEST Modified; FCOHb 0.3 % (0.0-3.9); FMetHb 0.4 % (0.0-1.5); FO2Hb 95.2 % (94-97); PATIENT TEMPERATURE 37.1; PEEP 16 cm H2O; RESPIRATORY RATE 32 b/min; TOTAL HEMOGLOBIN 9.4 G/dl (12.0-16.0)
[2021-09-19 04:28] LABS: BASOPHILS % (AUTO) 0 % (0-1); EOSINOPHILS # (AUTO) 0.1 X10'3 (0-0.9); EOSINOPHILS % (AUTO) 0.5 % (0-6); HEMATOCRIT 24.4 % (35.0-45.0); HEMOGLOBIN 8.3 g/dl (12.0-16.0); LYMPHOCYTES # (AUTO) 0.5 X10'3 (1.1-4.8); LYMPHOCYTES % (AUTO) 3.9 % (21-51); MEAN CORPUSCULAR HEMOGLOBIN 31.6 PG (27.0-31.0); MEAN CORPUSCULAR VOLUME 93.2 FL (78-98); MONOCYTES # (AUTO) 0.5 X10'3 (0-0.9); MONOCYTES % (AUTO) 4.2 % (2-12); NEUTROPHILS # (AUTO) 10.9 X10'3 (1.8-7.7); NEUTROPHILS % (AUTO) 91.4 % (42-75); PLATELET COUNT 275 X10'3 (140-440); RED BLOOD COUNT 2.62 X10'6 (4.20-5.60); RED CELL DISTRIBUTION WIDTH 14.3 % (11.5-14.5); WHITE BLOOD COUNT 11.9 X10'3 (4.5-11.0)
[2021-09-19 04:43] LABS: ALANINE AMINOTRANSFERASE 23 U/L (12-78); ALBUMIN 1.5 G/DL (3.4-5.0); ALBUMIN/GLOBULIN RATIO 0.4 (1.1-1.5); ALKALINE PHOSPHATASE 68 IU/L (46-116); ANION GAP 9 (8-16); ASPARTATE AMINO TRANSFERASE 19 U/L (10-37); BILIRUBIN,TOTAL 0.3 MG/DL (0.1-1.0); BLOOD UREA NITROGEN 55 MG/DL (7-18); BUN/CREATININE RATIO 35.5 (6.6-38.0); CHLORIDE 111 MMOL/L (99-107); CREATININE 1.55 MG/DL (0.40-0.90); GLUCOSE 141 MG/DL (70-104); MAGNESIUM 2.2 MG/DL (1.5-2.4); PHOSPHORUS 5.5 MG/DL (2.3-4.5); POTASSIUM 5.3 MMOL/L (3.5-5.1); SODIUM 142 MMOL/L (135-145); TOTAL CARBON DIOXIDE 22.1 MMOL/L (24-32); TOTAL PROTEIN 5.4 G/DL (6.4-8.2); eGFR 34 ML/MIN
[2021-09-19 06:07] LABS: TOTAL CELLS COUNTED 100
[2021-09-19 06:09] LABS: PLATELET ESTIMATE NORMAL
[2021-09-19] MEDS: propofol 1000mg/100ml bottle 100 ML IV SCH ×4 (07:07→18:56)
[2021-09-19] MEDS: lansoprazole 15mg solutab OGT SCH (07:21)
[2021-09-19] MEDS: docusate sodium 100mg/10ml UD cup OGT SCH ×2 (07:22→20:52)
[2021-09-19] MEDS: lactobacillus rhamnosus 10,000 MMU CELLS/CAPSULE OGT SCH ×2 (07:23→20:52)
[2021-09-19] MEDS: phenytoin 50mg chewable tablet OGT SCH ×2 (07:23→20:54)
[2021-09-19] MEDS: levoTHYROXINE 100mcg tablet OGT SCH (07:24)
[2021-09-19] MEDS: enoxaparin 40mg/0.4ml syringe SUBCUT SCH ×2 (07:27→20:53)
[2021-09-19] MEDS: NORepinephrine 8mg/ 250ml NS 250 ML IV SCH (09:51)
--- NOTE | 2021-09-19 16:16 | NUR ---
1000- Supined patient, tolerating at this time 1500- Meeting with family and and Meaghan. Sister Alma now the designated visitor.
[2021-09-19] MEDS: CISatracurium besylate inj. 100 MG in normal saline 100ml IV soln 90 ML IV SCH (17:20)
[2021-09-19] MEDS: insulin glargine (Lantus) pen - multi-dose SQ SCH (21:30)
[2021-09-20] VITALS (24 sets, daily range): BP systolic 90–127; BP diastolic 43–64
[2021-09-20] MEDS ORDERED: VANCOMYCIN LEVEL IV ONE (01:30)
[2021-09-20] MEDS: DOPamine 400mg/D5W 250ml 250 ML IV PRN ×3 (01:39→16:39)
[2021-09-20] MEDS: NORepinephrine 8mg/ 250ml NS 250 ML IV SCH ×2 (01:55→16:37)
[2021-09-20] MEDS: propofol 1000mg/100ml bottle 100 ML IV SCH ×4 (02:00→14:33)
[2021-09-20] MEDS: mineral oil/petrolatum ophthal oint EACHEYE SCH ×4 (02:12→20:19)
[2021-09-20] MEDS: insulin regular, human U-100 3ml vial - multi-dose SQ SCH ×3 (02:44→20:46)
[2021-09-20] MEDS: ipratropium/albuterol 3ml nebule NEB SCH ×6 (03:44→23:28)
[2021-09-20] MEDS: FENTANYL-0.9 % NACL/PF 100 ML IV SCH ×7 (03:59→20:53)
[2021-09-20 04:02] LABS: ABG HCO3 20.1 mmol/L (22.0-26.0); ABG OXYGEN SATURATION 88.2 % (94-97); ABG PCO2 (T) 40.9 mmHg (32.0-45.0); ABG PO2 (T) 54.1 mmHg (75.0-100.0); ALLEN'S TEST Modified; FCOHb 0.8 % (0.0-3.9); FMetHb 0.2 % (0.0-1.5); FO2Hb 87.3 % (94-97); PATIENT TEMPERATURE 36.1; PEEP 16 cm H2O; RESPIRATORY RATE 32 b/min; TOTAL HEMOGLOBIN 7.9 G/dl (12.0-16.0)
[2021-09-20 04:54] LABS: BASOPHILS # (AUTO) 0.1 X10'3 (0-0.2); BASOPHILS % (AUTO) 0.8 % (0-1); EOSINOPHILS # (AUTO) 0.2 X10'3 (0-0.9); EOSINOPHILS % (AUTO) 1.5 % (0-6); HEMATOCRIT 23.7 % (35.0-45.0); HEMOGLOBIN 8.2 g/dl (12.0-16.0); LYMPHOCYTES # (AUTO) 0.4 X10'3 (1.1-4.8); LYMPHOCYTES % (AUTO) 3.3 % (21-51); MEAN CORPUSCULAR HEMOGLOBIN 32.4 PG (27.0-31.0); MEAN CORPUSCULAR HGB CONC 34.5 g/dL (33.0-36.5); MEAN CORPUSCULAR VOLUME 93.9 FL (78-98); MEAN PLATELET VOLUME 9.2 FL (7.4-10.4); MONOCYTES # (AUTO) 0.5 X10'3 (0-0.9); MONOCYTES % (AUTO) 5.2 % (2-12); NEUTROPHILS # (AUTO) 9.4 X10'3 (1.8-7.7); NEUTROPHILS % (AUTO) 89.2 % (42-75); PLATELET COUNT 251 X10'3 (140-440); RED BLOOD COUNT 2.52 X10'6 (4.20-5.60); RED CELL DISTRIBUTION WIDTH 14.1 % (11.5-14.5); WHITE BLOOD COUNT 10.5 X10'3 (4.5-11.0)
[2021-09-20 05:06] LABS: MAGNESIUM 2.1 MG/DL (1.5-2.4); PHOSPHORUS 5.3 MG/DL (2.3-4.5); PREALBUMIN 24.9 MG/DL (19-36)
[2021-09-20 05:59] LABS: PLATELET ESTIMATE NORMAL; TOTAL CELLS COUNTED 100
--- NOTE | 2021-09-20 06:20 | NUR ---
Problems reprioritized. Patient report given, questions answered & plan of care reviewed with CECY Cramer.
[2021-09-20] MEDS: docusate sodium 100mg/10ml UD cup OGT SCH ×2 (08:00→20:19)
[2021-09-20] MEDS ORDERED: rocuronium 10mg/ml inj IV ONE (08:00)
[2021-09-20] MEDS: lansoprazole 15mg solutab OGT SCH (08:35)
[2021-09-20] MEDS: levoTHYROXINE 100mcg tablet OGT SCH (08:37)
[2021-09-20] MEDS: phenytoin 50mg chewable tablet OGT SCH ×2 (08:37→20:21)
[2021-09-20] MEDS: lactobacillus rhamnosus 10,000 MMU CELLS/CAPSULE OGT SCH ×2 (08:37→20:19)
[2021-09-20] MEDS: methylPREDNISolone sod succ/PF 40mg inj. IV SCH ×3 (08:38→23:47)
[2021-09-20] MEDS: enoxaparin 40mg/0.4ml syringe SUBCUT SCH ×2 (08:38→20:20)
[2021-09-20] MEDS: midazolam 100mg in NS 100ml 100 ML IV PRN ×2 (09:18→11:29)
[2021-09-20 09:57] LABS: ALBUMIN 1.4 G/DL (3.4-5.0); ANION GAP 10 (8-16); BLOOD UREA NITROGEN 56 MG/DL (7-18); BUN/CREATININE RATIO 36.4 (6.6-38.0); CALCIUM 7.2 MG/DL (8.5-10.1); CHLORIDE 114 MMOL/L (99-107); CREATININE 1.54 MG/DL (0.40-0.90); GLUCOSE 107 MG/DL (70-104); POTASSIUM 5.3 MMOL/L (3.5-5.1); SODIUM 145 MMOL/L (135-145); TOTAL CARBON DIOXIDE 20.7 MMOL/L (24-32); eGFR 34 ML/MIN
--- NOTE | 2021-09-20 17:03 | NUR ---
1630- pt sats down to 60's despite repostioning, md aware, cori dose times one, prone patient, started levo for low BP, titrate down dopamine as able, restart nimbex.
[2021-09-20] MEDS: CISatracurium besylate inj. 100 MG in normal saline 100ml IV soln 90 ML IV SCH ×2 (17:24→21:20)
--- NOTE | 2021-09-20 18:30 | NUR ---
Patient in room [facility] 2011. I have received report from CECY Wright and had the opportunity to ask questions and assume patient care.
[2021-09-20] MEDS: insulin glargine (Lantus) pen - multi-dose SQ SCH (21:00)
[2021-09-21] VITALS (24 sets, daily range): BP systolic 84–133; BP diastolic 37–58
[2021-09-21] MEDS: FENTANYL-0.9 % NACL/PF 100 ML IV SCH ×8 (00:07→21:03)
[2021-09-21] MEDS: midazolam 100mg in NS 100ml 100 ML IV PRN ×5 (00:10→21:04)
[2021-09-21] MEDS: CISatracurium besylate inj. 100 MG in normal saline 100ml IV soln 90 ML IV SCH ×7 (00:20→23:13)
[2021-09-21] MEDS: propofol 1000mg/100ml bottle 100 ML IV SCH ×6 (00:58→22:00)
[2021-09-21] MEDS: mineral oil/petrolatum ophthal oint EACHEYE SCH ×4 (01:24→20:13)
[2021-09-21] MEDS: insulin regular, human U-100 3ml vial - multi-dose SQ SCH ×4 (02:06→20:38)
[2021-09-21] MEDS: ipratropium/albuterol 3ml nebule NEB SCH ×6 (03:07→22:57)
[2021-09-21 03:45] LABS: BASOPHILS # (AUTO) 0.1 X10'3 (0-0.2); BASOPHILS % (AUTO) 0.7 % (0-1); EOSINOPHILS # (AUTO) 0.2 X10'3 (0-0.9); EOSINOPHILS % (AUTO) 1.3 % (0-6); HEMATOCRIT 25.2 % (35.0-45.0); HEMOGLOBIN 8.7 g/dl (12.0-16.0); LYMPHOCYTES # (AUTO) 0.4 X10'3 (1.1-4.8); MEAN CORPUSCULAR HEMOGLOBIN 32.4 PG (27.0-31.0); MEAN CORPUSCULAR HGB CONC 34.4 g/dL (33.0-36.5); MEAN CORPUSCULAR VOLUME 94.1 FL (78-98); MEAN PLATELET VOLUME 8.9 FL (7.4-10.4); MONOCYTES # (AUTO) 0.5 X10'3 (0-0.9); MONOCYTES % (AUTO) 3.8 % (2-12); NEUTROPHILS # (AUTO) 12.6 X10'3 (1.8-7.7); NEUTROPHILS % (AUTO) 91.2 % (42-75); PLATELET COUNT 292 X10'3 (140-440); RED BLOOD COUNT 2.68 X10'6 (4.20-5.60); RED CELL DISTRIBUTION WIDTH 14.7 % (11.5-14.5); WHITE BLOOD COUNT 13.8 X10'3 (4.5-11.0)
[2021-09-21 04:48] LABS: ABG BASE EXCESS -8.8 mmol/L (-2.0-2.0); ABG HCO3 19.3 mmol/L (22.0-26.0); ABG OXYGEN SATURATION 94.8 % (94-97); ABG PCO2 (T) 50.5 mmHg (32.0-45.0); ALLEN'S TEST POSITIVE; FCOHb 1.1 % (0.0-3.9); FMetHb 0.1 % (0.0-1.5); FO2Hb 93.7 % (94-97); PATIENT TEMPERATURE 36.1; PEEP 16 cm H2O; RESPIRATORY RATE 30 b/min; TOTAL HEMOGLOBIN 9.3 G/dl (12.0-16.0)
[2021-09-21 04:50] LABS: ALANINE AMINOTRANSFERASE 25 U/L (12-78); ALBUMIN 1.6 G/DL (3.4-5.0); ALBUMIN/GLOBULIN RATIO 0.4 (1.1-1.5); ALKALINE PHOSPHATASE 86 IU/L (46-116); ANION GAP 9 (8-16); ASPARTATE AMINO TRANSFERASE 21 U/L (10-37); BILIRUBIN,TOTAL 0.3 MG/DL (0.1-1.0); BLOOD UREA NITROGEN 54 MG/DL (7-18); CALCIUM 7.2 MG/DL (8.5-10.1); CHLORIDE 113 MMOL/L (99-107); CREATININE 1.35 MG/DL (0.40-0.90); GLUCOSE 124 MG/DL (70-104); PHOSPHORUS 5.9 MG/DL (2.3-4.5); POTASSIUM 5.8 MMOL/L (3.5-5.1); SODIUM 144 MMOL/L (135-145); TOTAL CARBON DIOXIDE 22.2 MMOL/L (24-32); TOTAL PROTEIN 5.8 G/DL (6.4-8.2); eGFR 40 ML/MIN
[2021-09-21 05:11] LABS: PLATELET ESTIMATE NORMAL; TOTAL CELLS COUNTED 100
[2021-09-21] MEDS: DOPamine 400mg/D5W 250ml 250 ML IV PRN (05:53)
--- NOTE | 2021-09-21 06:30 | NUR ---
Received report from CECY Najera
[2021-09-21] MEDS: methylPREDNISolone sod succ/PF 40mg inj. IV SCH ×2 (07:19→16:27)
[2021-09-21] MEDS: lansoprazole 15mg solutab OGT SCH (07:20)
[2021-09-21] MEDS: enoxaparin 40mg/0.4ml syringe SUBCUT SCH ×2 (07:20→20:13)
[2021-09-21] MEDS: lactobacillus rhamnosus 10,000 MMU CELLS/CAPSULE OGT SCH ×2 (07:20→20:12)
[2021-09-21] MEDS: levoTHYROXINE 100mcg tablet OGT SCH (07:20)
[2021-09-21] MEDS: phenytoin 50mg chewable tablet OGT SCH ×2 (07:21→20:13)
[2021-09-21] MEDS: docusate sodium 100mg/10ml UD cup OGT SCH ×2 (07:21→20:00)
[2021-09-21] MEDS: NORepinephrine 8mg/ 250ml NS 250 ML IV SCH ×2 (11:31→22:29)
[2021-09-21] MEDS ORDERED: sodium polystyrene sulfonate 15gm/60ml oral suspension PO ONE (11:45)
--- NOTE | 2021-09-21 13:46 | NUR ---
Reassessment: Pt remains intubated and tolerating TF at goal rate with GRV WNL. Propofol rate has been decreased to 19.92 mL/hr providing roughly 526 kcal/day. Estimated energy needs continue to be met with Propofol running at current rate. Pt documented with 600 mL stool output from rectal tube today so far per I&O. Routine bowel care being held at this time. Will continue to follow and adjust nutrition recommendations as appropriate. Recommendations: 1) Given Propofol at 19.92 mL/hr (~526 kcal/day), continuous Vital High Protein at 46 mL/hr for 20 hours/day to provide 920 mL total volume/day, 920 kcal, 81 g protein, and 769 mL water. Will meet estimated energy needs when combined with kcal from Propofol and 77% estimated protein needs 2) Once Propofol is discontinued, continuous TF using Vital High Protein at 66 mL/hr goal rate to run 20 hours/day. To provide 1320 mL total volume/day, 1320 kcal, 116 g protein, and 1109 mL water. 3) HOLD TF FOR ONE HOUR BEFORE AND AFTER OGT DILANTIN DOSAGE BID 4) Monitor Propofol rate for TF adjustment needs 5) Additional 200 mL water flush Q6H per business intelligence manager; monitor serum Na for adjustment needs 6) Prealbumin q Monday/ 7) Daily scaled wts 8) Routine bowel care; previous 8 days constipation Addendum: 09/21/21 at [address] Amended: Links added.
--- NOTE | 2021-09-21 18:12 | NUR ---
Report given to CECY Najera
[2021-09-21] MEDS: insulin glargine (Lantus) pen - multi-dose SQ SCH (20:40)
--- NOTE | 2021-09-21 21:00 | NUR ---
Pt's son, Alex, called at 2100. He requested to speak to doctor Huynh in the morning about his plan of care moving forward. He stated, "He would like the doctor to reach out to him on his cell for more information on his mother's care." Will pass it on to day shift and notify them of his request.
[2021-09-22] VITALS (24 sets, daily range): BP systolic 88–137; BP diastolic 41–57
[2021-09-22] MEDS: methylPREDNISolone sod succ/PF 40mg inj. IV SCH ×3 (00:03→16:01)
[2021-09-22] MEDS: FENTANYL-0.9 % NACL/PF 100 ML IV SCH ×5 (00:04→11:22)
[2021-09-22] MEDS: insulin regular, human U-100 3ml vial - multi-dose SQ SCH ×4 (02:14→21:15)
[2021-09-22] MEDS: mineral oil/petrolatum ophthal oint EACHEYE SCH ×4 (02:16→20:00)
[2021-09-22] MEDS: midazolam 100mg in NS 100ml 100 ML IV PRN ×5 (02:31→21:03)
[2021-09-22 02:49] LABS: BASOPHILS # (AUTO) 0.2 X10'3 (0-0.2); HEMOGLOBIN 8.3 g/dl (12.0-16.0); LYMPHOCYTES # (AUTO) 0.5 X10'3 (1.1-4.8); MEAN CORPUSCULAR VOLUME 95.2 FL (78-98)
[2021-09-22 02:51] LABS: BASOPHILS % (AUTO) 1.2 % (0-1); EOSINOPHILS # (AUTO) 0.4 X10'3 (0-0.9); EOSINOPHILS % (AUTO) 2.3 % (0-6); HEMATOCRIT 24.5 % (35.0-45.0); LYMPHOCYTES % (AUTO) 2.9 % (21-51); MEAN CORPUSCULAR HEMOGLOBIN 32.4 PG (27.0-31.0); MONOCYTES # (AUTO) 0.9 X10'3 (0-0.9); MONOCYTES % (AUTO) 4.7 % (2-12); NEUTROPHILS # (AUTO) 16.8 X10'3 (1.8-7.7); NEUTROPHILS % (AUTO) 88.9 % (42-75); PLATELET COUNT 333 X10'3 (140-440); RED BLOOD COUNT 2.57 X10'6 (4.20-5.60); RED CELL DISTRIBUTION WIDTH 15.5 % (11.5-14.5); WHITE BLOOD COUNT 18.9 X10'3 (4.5-11.0)
[2021-09-22] MEDS: CISatracurium besylate inj. 100 MG in normal saline 100ml IV soln 90 ML IV SCH ×6 (03:06→22:11)
[2021-09-22] MEDS: ipratropium/albuterol 3ml nebule NEB SCH ×6 (03:10→23:32)
[2021-09-22] MEDS: propofol 1000mg/100ml bottle 100 ML IV SCH ×5 (03:14→21:04)
[2021-09-22 03:29] LABS: ALANINE AMINOTRANSFERASE 23 U/L (12-78); ALBUMIN 1.6 G/DL (3.4-5.0); ALBUMIN/GLOBULIN RATIO 0.4 (1.1-1.5); ALKALINE PHOSPHATASE 97 IU/L (46-116); ANION GAP 11 (8-16); ASPARTATE AMINO TRANSFERASE 20 U/L (10-37); BILIRUBIN,TOTAL 0.2 MG/DL (0.1-1.0); BLOOD UREA NITROGEN 58 MG/DL (7-18); BUN/CREATININE RATIO 39.2 (6.6-38.0); CHLORIDE 114 MMOL/L (99-107); CREATININE 1.48 MG/DL (0.40-0.90); GLUCOSE 101 MG/DL (70-104); MAGNESIUM 1.8 MG/DL (1.5-2.4); PHOSPHORUS 5.5 MG/DL (2.3-4.5); POTASSIUM 5.3 MMOL/L (3.5-5.1); SODIUM 147 MMOL/L (135-145); TOTAL CARBON DIOXIDE 21.7 MMOL/L (24-32); TOTAL PROTEIN 5.9 G/DL (6.4-8.2); eGFR 36 ML/MIN
[2021-09-22 04:09] LABS: ABG BASE EXCESS -9.1 mmol/L (-2.0-2.0); ABG HCO3 19.5 mmol/L (22.0-26.0); ABG OXYGEN SATURATION 90.2 % (94-97); ABG PCO2 (T) 56.7 mmHg (32.0-45.0); ABG PO2 (T) 65.2 mmHg (75.0-100.0); ALLEN'S TEST POSITIVE; FMetHb 0.5 % (0.0-1.5); FO2Hb 88.8 % (94-97); PATIENT TEMPERATURE 37.1; RESPIRATORY RATE 32 b/min; TOTAL HEMOGLOBIN 9.4 G/dl (12.0-16.0)
[2021-09-22] MEDS: NORepinephrine 8mg/ 250ml NS 250 ML IV SCH ×3 (04:54→20:25)
--- NOTE | 2021-09-22 06:10 | NUR ---
Problems reprioritized. Patient report given, questions answered & plan of care reviewed with CECY Holland.
--- NOTE | 2021-09-22 06:30 | NUR ---
Received report from CECY Najera
[2021-09-22] MEDS: docusate sodium 100mg/10ml UD cup OGT SCH ×2 (08:00→20:00)
[2021-09-22] MEDS: enoxaparin 40mg/0.4ml syringe SUBCUT SCH ×2 (08:17→21:06)
[2021-09-22] MEDS: lactobacillus rhamnosus 10,000 MMU CELLS/CAPSULE OGT SCH ×2 (08:17→21:08)
[2021-09-22] MEDS: phenytoin 50mg chewable tablet OGT SCH ×2 (08:17→21:07)
[2021-09-22] MEDS: lansoprazole 15mg solutab OGT SCH (08:18)
[2021-09-22] MEDS: levoTHYROXINE 100mcg tablet OGT SCH (08:18)
--- NOTE | 2021-09-22 09:11 | NUR ---
Pt desat into 70s. Pt bagged for 15 mins. peep increased on vent to maintain sats, which are now 88%
--- NOTE | 2021-09-22 09:14 | NUR ---
Patient desaturated to 65, RT at bedside bagging patient, Pt. on Nimbex, Versed, Fentanyl, and Propofol- adequately sedated and paralyzed. Order received from Dr. Rodriguez to increase peep from 15 to 18. Pt. placed back on ventilator. O2 saturation 88%.
[2021-09-22] MEDS: SODIUM ZIRCONIUM CYCLOSILICATE 10 GM POWD.PACK PO SCH (10:16)
[2021-09-22] MEDS: fentaNYL/NS/PF 2,500 mcg/250mL 250 ML IV SCH (18:01)
[2021-09-22] MEDS: insulin glargine (Lantus) pen - multi-dose SQ SCH (21:11)
[2021-09-23] VITALS (25 sets, daily range): BP systolic 98–138; BP diastolic 45–62
[2021-09-23] MEDS: methylPREDNISolone sod succ/PF 40mg inj. IV SCH ×3 (00:21→16:17)
[2021-09-23] MEDS: propofol 1000mg/100ml bottle 100 ML IV SCH ×5 (00:22→20:43)
[2021-09-23] MEDS: midazolam 100mg in NS 100ml 100 ML IV PRN ×5 (00:22→20:42)
[2021-09-23] MEDS: CISatracurium besylate inj. 100 MG in normal saline 100ml IV soln 90 ML IV SCH ×6 (01:11→20:52)
[2021-09-23] MEDS: fentaNYL/NS/PF 2,500 mcg/250mL 250 ML IV SCH ×3 (01:35→17:41)
[2021-09-23] MEDS: insulin regular, human U-100 3ml vial - multi-dose SQ SCH ×4 (01:38→20:50)
[2021-09-23] MEDS: mineral oil/petrolatum ophthal oint EACHEYE SCH ×4 (01:40→20:51)
[2021-09-23] MEDS: ipratropium/albuterol 3ml nebule NEB SCH ×6 (02:43→23:39)
[2021-09-23 02:57] LABS: ABG BASE EXCESS -9.1 mmol/L (-2.0-2.0); ABG HCO3 18.5 mmol/L (22.0-26.0); ABG OXYGEN SATURATION 96.8 % (94-97); ABG PCO2 (T) 49.8 mmHg (32.0-45.0); ABG PO2 (T) 102.3 mmHg (75.0-100.0); ALLEN'S TEST POSITIVE; FCOHb 1.1 % (0.0-3.9); FMetHb 0.3 % (0.0-1.5); FO2Hb 95.4 % (94-97); PATIENT TEMPERATURE 37.3; PEEP 18 cm H2O; RESPIRATORY RATE 32 b/min; TOTAL HEMOGLOBIN 8.1 G/dl (12.0-16.0)
[2021-09-23 03:54] LABS: BASOPHILS % (AUTO) 0.4 % (0-1); EOSINOPHILS # (AUTO) 0.4 X10'3 (0-0.9); EOSINOPHILS % (AUTO) 3.1 % (0-6); HEMATOCRIT 22.4 % (35.0-45.0); HEMOGLOBIN 7.4 g/dl (12.0-16.0); LYMPHOCYTES # (AUTO) 0.8 X10'3 (1.1-4.8); LYMPHOCYTES % (AUTO) 6.2 % (21-51); MEAN CORPUSCULAR HEMOGLOBIN 32.1 PG (27.0-31.0); MEAN CORPUSCULAR HGB CONC 32.9 g/dL (33.0-36.5); MEAN CORPUSCULAR VOLUME 97.5 FL (78-98); MEAN PLATELET VOLUME 8.9 FL (7.4-10.4); MONOCYTES # (AUTO) 0.7 X10'3 (0-0.9); MONOCYTES % (AUTO) 5.2 % (2-12); NEUTROPHILS % (AUTO) 85.1 % (42-75); PLATELET COUNT 268 X10'3 (140-440); RED CELL DISTRIBUTION WIDTH 15.6 % (11.5-14.5); WHITE BLOOD COUNT 12.9 X10'3 (4.5-11.0)
[2021-09-23 04:04] LABS: ALANINE AMINOTRANSFERASE 22 U/L (12-78); ALBUMIN 1.5 G/DL (3.4-5.0); ALBUMIN/GLOBULIN RATIO 0.4 (1.1-1.5); ALKALINE PHOSPHATASE 90 IU/L (46-116); ANION GAP 14 (8-16); ASPARTATE AMINO TRANSFERASE 25 U/L (10-37); BILIRUBIN,TOTAL 0.3 MG/DL (0.1-1.0); BLOOD UREA NITROGEN 60 MG/DL (7-18); BUN/CREATININE RATIO 37.7 (6.6-38.0); CALCIUM 6.6 MG/DL (8.5-10.1); CHLORIDE 112 MMOL/L (99-107); CREATININE 1.59 MG/DL (0.40-0.90); GLUCOSE 85 MG/DL (70-104); POTASSIUM 4.9 MMOL/L (3.5-5.1); PREALBUMIN 26.2 MG/DL (19-36); SODIUM 146 MMOL/L (135-145); TOTAL CARBON DIOXIDE 19.9 MMOL/L (24-32); TOTAL PROTEIN 5.3 G/DL (6.4-8.2); eGFR 33 ML/MIN
[2021-09-23 04:35] LABS: PLATELET ESTIMATE NORMAL; TOTAL CELLS COUNTED 100
[2021-09-23 04:36] LABS: POLYCHROMASIA FEW
[2021-09-23] MEDS: NORepinephrine 8mg/ 250ml NS 250 ML IV SCH ×2 (06:07→17:57)
[2021-09-23 07:12] LABS: C-REACTIVE PROTEIN 8.17 MG/DL (0.0-0.5); MAGNESIUM 1.8 MG/DL (1.5-2.4); PHOSPHORUS 5.9 MG/DL (2.3-4.5)
[2021-09-23] MEDS: levoTHYROXINE 100mcg tablet OGT SCH (07:13)
[2021-09-23] MEDS: lansoprazole 15mg solutab OGT SCH (07:13)
[2021-09-23] MEDS: enoxaparin 40mg/0.4ml syringe SUBCUT SCH ×2 (07:14→20:41)
[2021-09-23] MEDS: phenytoin 50mg chewable tablet OGT SCH ×2 (07:14→20:41)
[2021-09-23] MEDS: lactobacillus rhamnosus 10,000 MMU CELLS/CAPSULE OGT SCH ×2 (07:14→20:52)
[2021-09-23] MEDS: docusate sodium 100mg/10ml UD cup OGT SCH ×2 (07:19→20:51)
[2021-09-23 07:24] LABS: D-DIMER 1.26 MG/L FEU (0-0.50)
[2021-09-23] MEDS: SODIUM ZIRCONIUM CYCLOSILICATE 10 GM POWD.PACK PO SCH (09:33)
[2021-09-23] MEDS: furosemide 40mg/4ml inj IV SCH (11:12)
[2021-09-23] MEDS: insulin glargine (Lantus) pen - multi-dose SQ SCH (20:48)
[2021-09-24] VITALS (11 sets, daily range): BP systolic 95–127; BP diastolic 47–62
[2021-09-24] MEDS: propofol 1000mg/100ml bottle 100 ML IV SCH ×2 (00:11→05:11)
[2021-09-24] MEDS: midazolam 100mg in NS 100ml 100 ML IV PRN ×2 (00:11→09:35)
[2021-09-24] MEDS: CISatracurium besylate inj. 100 MG in normal saline 100ml IV soln 90 ML IV SCH ×2 (00:12→02:52)
[2021-09-24] MEDS: fentaNYL/NS/PF 2,500 mcg/250mL 250 ML IV SCH ×2 (02:51→09:59)
[2021-09-24] MEDS: mineral oil/petrolatum ophthal oint EACHEYE SCH ×2 (02:52→07:29)
[2021-09-24] MEDS: insulin regular, human U-100 3ml vial - multi-dose SQ SCH (02:55)
[2021-09-24 03:10] LABS: BASOPHILS # (AUTO) 0.1 X10'3 (0-0.2); BASOPHILS % (AUTO) 0.6 % (0-1); EOSINOPHILS # (AUTO) 0.4 X10'3 (0-0.9); EOSINOPHILS % (AUTO) 3.3 % (0-6); HEMOGLOBIN 7.3 g/dl (12.0-16.0); LYMPHOCYTES % (AUTO) 7.9 % (21-51); MEAN CORPUSCULAR HEMOGLOBIN 32.4 PG (27.0-31.0); MEAN CORPUSCULAR HGB CONC 33.4 g/dL (33.0-36.5); MEAN CORPUSCULAR VOLUME 97.1 FL (78-98); MEAN PLATELET VOLUME 8.5 FL (7.4-10.4); MONOCYTES # (AUTO) 0.5 X10'3 (0-0.9); MONOCYTES % (AUTO) 4.5 % (2-12); NEUTROPHILS # (AUTO) 10.1 X10'3 (1.8-7.7); NEUTROPHILS % (AUTO) 83.7 % (42-75); PLATELET COUNT 270 X10'3 (140-440); RED BLOOD COUNT 2.26 X10'6 (4.20-5.60); RED CELL DISTRIBUTION WIDTH 15.7 % (11.5-14.5); WHITE BLOOD COUNT 12.1 X10'3 (4.5-11.0)
[2021-09-24 03:32] LABS: ALANINE AMINOTRANSFERASE 20 U/L (12-78); ALBUMIN 1.4 G/DL (3.4-5.0); ALBUMIN/GLOBULIN RATIO 0.4 (1.1-1.5); ALKALINE PHOSPHATASE 93 IU/L (46-116); ANION GAP 11 (8-16); ASPARTATE AMINO TRANSFERASE 23 U/L (10-37); BILIRUBIN,TOTAL 0.3 MG/DL (0.1-1.0); BLOOD UREA NITROGEN 65 MG/DL (7-18); BUN/CREATININE RATIO 40.1 (6.6-38.0); CALCIUM 6.5 MG/DL (8.5-10.1); CHLORIDE 113 MMOL/L (99-107); CREATININE 1.62 MG/DL (0.40-0.90); GLUCOSE 108 MG/DL (70-104); POTASSIUM 4.4 MMOL/L (3.5-5.1); SODIUM 144 MMOL/L (135-145); TOTAL CARBON DIOXIDE 19.7 MMOL/L (24-32); TOTAL PROTEIN 5.3 G/DL (6.4-8.2); TRIGLYCERIDES 146 MG/DL (20-135); eGFR 32 ML/MIN
[2021-09-24 04:31] LABS: ABG BASE EXCESS -8.7 mmol/L (-2.0-2.0); ABG HCO3 18.2 mmol/L (22.0-26.0); ABG OXYGEN SATURATION 83.7 % (94-97); ABG PCO2 (T) 44.2 mmHg (32.0-45.0); ABG PO2 (T) 49.5 mmHg (75.0-100.0); ALLEN'S TEST Modified; FCOHb 1.7 % (0.0-3.9); FMetHb 0.1 % (0.0-1.5); FO2Hb 82.2 % (94-97); PATIENT TEMPERATURE 36.7; PEEP 18 cm H2O; RESPIRATORY RATE 32 b/min; TOTAL HEMOGLOBIN 7.5 G/dl (12.0-16.0)
[2021-09-24] MEDS: ipratropium/albuterol 3ml nebule NEB SCH ×2 (04:34→07:31)
[2021-09-24] MEDS: NORepinephrine 8mg/ 250ml NS 250 ML IV SCH (05:12)
[2021-09-24] MEDS ORDERED: CISatracurium besylate inj. 100 MG in dextrose 5%-water 90 ML IV SCH (07:47)
[2021-09-24] MEDS: docusate sodium 100mg/10ml UD cup OGT SCH (07:52)
[2021-09-24] MEDS: furosemide 40mg/4ml inj IV SCH (07:52)
[2021-09-24] MEDS: levoTHYROXINE 100mcg tablet OGT SCH (07:52)
[2021-09-24] MEDS: enoxaparin 40mg/0.4ml syringe SUBCUT SCH (07:52)
[2021-09-24] MEDS: lansoprazole 15mg solutab OGT SCH (07:52)
[2021-09-24] MEDS: lactobacillus rhamnosus 10,000 MMU CELLS/CAPSULE OGT SCH (07:52)
[2021-09-24] MEDS ORDERED: epiNEPHrine 0.1mg/ml 10ml syringe ONE (08:00)
[2021-09-24] MEDS ORDERED: methylPREDNISolone sod succ/PF 40mg inj. IV SCH (08:00)
[2021-09-24 08:26] LABS: MAGNESIUM 1.8 MG/DL (1.5-2.4); PHOSPHORUS 6.4 MG/DL (2.3-4.5)
[2021-09-24] MEDS: phenytoin 50mg chewable tablet OGT SCH (08:55)
[2021-09-24] MEDS ORDERED: CISatracurium besylate inj. 100 MG in normal saline 100ml IV soln 90 ML IV SCH (09:00)
[2021-09-24] MEDS ORDERED: furosemide 40mg/4ml inj IV STA (09:54)
[2021-09-24 09:58] LABS: ABG BASE EXCESS -10.5 mmol/L (-2.0-2.0); ABG HCO3 17.4 mmol/L (22.0-26.0); ABG OXYGEN SATURATION 61.3 % (94-97); ABG PCO2 (T) 48.1 mmHg (32.0-45.0); ABG PO2 (T) 33.4 mmHg (75.0-100.0); ALLEN'S TEST POSITIVE; FCOHb 1.8 % (0.0-3.9); FLOW 15 L/min; FMetHb 0.2 % (0.0-1.5); FO2Hb 60.1 % (94-97); PATIENT TEMPERATURE 36.6; PEEP 15 cm H2O; TOTAL HEMOGLOBIN 8.5 G/dl (12.0-16.0)
--- NOTE | 2021-09-24 11:16 | NUR ---
Patient was supine and maintaining a saturation of about 88-89%. Dr. Rodriguez ordered an abdominal ultrasound. Ultrasound was paged at 0900 and they stated that they could be up at about 0930. Primary RN asked if they could come up carolyn due to patient's saturation beginning to dip to 87-86%, they stated that they would be up in just a moment. By 0915 the patient's saturation was in the mid to low 70s and RT was bedside bagging the patient. Ultrasound came up but we were unable to stabilize the patient enough to try and do the ultrasound so it was determined to hold off for now. We attempted to prone the patient with RT, three RN, and two techs at about 0940 once we determined that the patient's saturation was not improving with being bagged. Her saturation at this time was about 65%. Once the patient was manually proned and settled the oxygen saturation read 38% and this was confirmed with the RT's finger oximeter. It was determined that the patient wasn't going to tolerate the prone position so with the same crew we were able to supine her again now with her oxygen saturation in the 40s. Dr. Rodriguez was beside by 0950 and ordered for another 40mg of Lasix to be given, a stat ABG, and a chest xray to evaluate for a pneumothorax. All of these orders were followed through and Dr. Rodriguez took the time to speak with both the patient's son and sister on the phone and expressed the severity of the situation. Both Son and sister were to come in. ABG came back with a P02 of 34. The patient's son arrived at about 1015 and the patient's saturation was maintaining in the 30-40s. Patient's son was unable to make a decision at that time on whether he would like us to code her when it came to it or to make her a DNR. We continued bagging the patient. Eventually around 1045 the patient's heart rate began to decrease and the patient ended up in PEA. We called a code blue over head and with with Dr. Rodriguez bedside began to code the patient. The son (who had stepped out for a moment) came back in and expressed desire for us to stop. The code team stopped and the son was brought in to hold his mother's hand as she passed at 1100. At 1105 RT extubated the patient per families request.
--- NOTE | 2021-09-24 12:00 | NUR ---
Donor network called and Chetan was the contact manager who stated that the patient would be released as a potential donor due to COVID PNA.
--- NOTE | 2021-09-24 15:26 | NUR ---
Patient left with Jt odell from [place] per patient's son request. All belongings including patient's cell phone left with the family. Medina cath and rectal tube removed prior to leaving.
== END 2021-09-24 15:26 | DRG 130 ==
LOC: ORTHO 4S 20:00 → UNDOADMIN 20:00 → ORTHO 4S 09-03 01:39 → CICU 2S 09-09 22:01
PROVIDERS: ADMIT Family Medicine; ATTEND Internal Medicine
PROC: 5A0935A Assistance with Respiratory Ventilation, Less than 24 Consecutive Hours, High Flow/Velocity Cannula (ICD-10-PCS; 2021-09-03)
PROC: 5A09357 Assistance with Respiratory Ventilation, Less than 24 Consecutive Hours, Continuous Positive Airway Pressure (ICD-10-PCS; 2021-09-03)
PROC: 5A0935A Assistance with Respiratory Ventilation, Less than 24 Consecutive Hours, High Flow/Velocity Cannula (ICD-10-PCS; 2021-09-04)
PROC: 5A09557 Assistance with Respiratory Ventilation, Greater than 96 Consecutive Hours, Continuous Positive Airway Pressure (ICD-10-PCS; 2021-09-04)
PROC: XW033E5 Introduction of Remdesivir Anti-infective into Peripheral Vein, Percutaneous Approach, New Technology Group 5 (ICD-10-PCS; 2021-09-05)
PROC: 0BH17EZ Insertion of Endotracheal Airway into Trachea, Via Natural or Artificial Opening (ICD-10-PCS; principal; 2021-09-09)
PROC: 5A1955Z Respiratory Ventilation, Greater than 96 Consecutive Hours (ICD-10-PCS; 2021-09-09)
PROC: 02HV33Z Insertion of Infusion Device into Superior Vena Cava, Percutaneous Approach (ICD-10-PCS; 2021-09-10)
DX: U07.1 COVID-19 (principal); J12.82 Pneumonia due to coronavirus disease 2019; R57.9 Shock, unspecified; J15.20 Pneumonia due to staphylococcus, unspecified; D64.9 Anemia, unspecified; J80 Acute respiratory distress syndrome; N17.9 Acute kidney failure, unspecified; E87.0 Hyperosmolality and hypernatremia; E03.9 Hypothyroidism, unspecified; G40.909 Epilepsy, unspecified, not intractable, without status epilepticus; E87.2 Acidosis; R00.1 Bradycardia, unspecified; R31.29 Other microscopic hematuria; I12.9 Hypertensive chronic kidney disease with stage 1 through stage 4 chronic kidney disease, or unspecified chronic kidney disease; I46.8 Cardiac arrest due to other underlying condition; E87.6 Hypokalemia; F41.9 Anxiety disorder, unspecified; E66.01 Morbid (severe) obesity due to excess calories; N18.9 Chronic kidney disease, unspecified; T42.6X6A Underdosing of other antiepileptic and sedative-hypnotic drugs, initial encounter; Z68.34 Body mass index [BMI] 34.0-34.9, adult; Z87.891 Personal history of nicotine dependence; Y92.89 Other specified places as the place of occurrence of the external cause
CPT/HCPCS: 36415; 36600; 71045; 74018; 78580; 80048; 80053; 80061; 80185; 80202; 80305; 81001; 82803; 82948; 83036; 83605; 83615; 83735; 83880; 84100; 84132; 84134; 84145; 84443; 84478; 85007; 85018; 85025; 85379; 85610; 85730; 86140; 87040; 87070; 87077; 87081; 87088; 87186; 92950; 94002; 94003; 94640; 94660; 94760; 94799; A9540; G0378; J0171; J0456; J0610; J0692; J0696; J1100; J1265; J1650; J1815; J1940; J2270; J2405; J2543; J2704; J2920; J2930; J3010; J3370; J3475; J3480; J3490; J7030; J7060; P9047